=== PATIENT | male | born 1935 | race African-American/Black ===

== ENCOUNTER 2023-11-26 19:36 | Inpatient (IN) | payer OTHER ==
[2023-11-26 22:34] LABS: EPI CELLS 3 /uL (0-25.1); HYALINE CASTS 0 /uL (0-3.1); PH,URINE 5.5 (5.0-8.0); URINE APPEARANCE CLEAR; URINE BACTERIA 2 /uL (0-1359); URINE BILIRUBIN NEGATIVE (NEGATIVE); URINE COLOR YELLOW; URINE GLUCOSE (UA) NEGATIVE (NEGATIVE); URINE KETONE NEGATIVE (NEGATIVE); URINE LEUK ESTERASE TRACE (NEGATIVE); URINE NITRITE NEGATIVE (NEGATIVE); URINE PROTEIN 1+ (NEGATIVE); URINE RBC 59 /uL (0-23.9); URINE WBC 4 /uL (0-25.8)
[2023-11-26] MEDS ORDERED: HALOPERIDOL LACTATE 5 MG/ML ONE (22:38)
[2023-11-26] MEDS: HALOPERIDOL LACTATE 5 MG/ML IM ONE (22:42)
[2023-11-27 01:01] LABS: BASO % 0.6 % (0-2.0); EOS % 1.8 % (0-4.5); HEMATOCRIT 37.2 % (35.4-49); HEMOGLOBIN 12.4 GM/dL (11.7-16.9); LYMPH % 48.3 % (8-40); MCH 31.2 pg (25.7-33.7); MCHC 33.3 g/dl (32.0-35.9); MEAN CELL VOLUME 93.7 fl (80-96); MEAN PLT VOLUME 8.7 fl (7.5-11.1); MONO % 14.8 % (3.8-10.2); NEUT % 34.5 % (42.8-82.8); PLATELET COUNT 117 10^3/uL (134-434); RBC 3.97 M/mm3 (4.00-5.60); RDW 12.5 % (11.9-15.9); WHITE BLOOD COUNT 3.4 K/mm3 (4.0-10.0)
[2023-11-27 01:06] LABS: INR 1.13 (0.83-1.09); PROTHROMBIN TIME (PATIENT) 13.1 SEC (9.7-13.0)
[2023-11-27 01:08] LABS: ACTIVATED PTT 31.5 SECONDS (25.2-36.5)
[2023-11-27 01:19] LABS: POTASSIUM 4.6 mmol/L (3.5-5.1)
[2023-11-27 01:21] LABS: ALBUMIN 3.8 g/dl (3.4-5.0); BLOOD UREA NITROGEN 32.5 mg/dL (7-18); CALCIUM 9.7 mg/dL (8.5-10.1)
[2023-11-27 01:24] LABS: CREATININE 1.2 mg/dL (0.55-1.3)
[2023-11-27 01:26] LABS: BILIRUBIN,TOTAL 0.5 mg/dL (0.2-1); TOT PROT 7.1 g/dl (6.4-8.2)
[2023-11-27] MEDS ORDERED: amLODIPine BESYLATE 5 MG TABLET (FP) ONE (08:31)
[2023-11-27] MEDS: amLODIPine BESYLATE 5 MG TABLET (FP) PO ONE (08:41)
[2023-11-27] MEDS ORDERED: hydrALAZINE HCL 20 MG/ML VIAL ONE (11:02)
[2023-11-27] MEDS: hydrALAZINE HCL 20 MG/ML VIAL IVPUSH ONE (12:00)
[2023-11-27] MEDS: ISOSORBIDE MONONITRATE 60 MG TAB.SR.24H (FP) PO SCH (12:01)
[2023-11-27] MEDS: DULoxetine HCL 20 MG CAPSULE.DR PO SCH (12:01)
[2023-11-27] MEDS: CLOPIDOGREL BISULFATE 75 MG TABLET (FP) PO SCH (12:01)
[2023-11-27] MEDS: RANOLAZINE E.R. 1,000 MG TABLET (FP) PO SCH (12:01)
[2023-11-27] MEDS: FOLIC ACID 1 MG TABLET (FP) PO SCH (12:01)
[2023-11-27] MEDS: PANTOPRAZOLE 40 MG TABLET PO SCH (12:01)
[2023-11-27] MEDS: INSULIN ASPART SLIDING SCALE (NOVOLOG) 1 VIAL SQ SCH (12:41)
[2023-11-27] MEDS: hydrALAZINE HCL 20 MG/ML VIAL IVPUSH PRN (16:38)
[2023-11-27] MEDS: GABAPENTIN 100 MG CAPSULE PO SCH (16:41)
[2023-11-27] MEDS: SODIUM CHLORIDE 1,000 ML IV SCH (16:54)
[2023-11-27 17:55] VITALS: BMI 19.8
[2023-11-27] MEDS: ATORVASTATIN CA 20 MG TABLET (FP) PO SCH (22:07)
[2023-11-28 08:33] LABS: BASO % 0.6 % (0-2.0); HEMATOCRIT 35.3 % (35.4-49); LYMPH % 43.7 % (8-40); MCH 31.3 pg (25.7-33.7); MCHC 33.8 g/dl (32.0-35.9); MEAN CELL VOLUME 92.5 fl (80-96); MEAN PLT VOLUME 8.9 fl (7.5-11.1); MONO % 13.9 % (3.8-10.2); NEUT % 39.8 % (42.8-82.8); PLATELET COUNT 113 10^3/uL (134-434); RBC 3.82 M/mm3 (4.00-5.60); RDW 12.4 % (11.9-15.9); WHITE BLOOD COUNT 3.2 K/mm3 (4.0-10.0)
[2023-11-28 08:50] LABS: POTASSIUM 4.1 mmol/L (3.5-5.1)
[2023-11-28 08:58] LABS: CALCIUM 9.1 mg/dL (8.5-10.1)
[2023-11-28 08:59] LABS: ALBUMIN 3.9 g/dl (3.4-5.0); BLOOD UREA NITROGEN 26.6 mg/dL (7-18); MAGNESIUM 1.9 mg/dL (1.8-2.4)
[2023-11-28 09:00] LABS: BILIRUBIN,TOTAL 0.6 mg/dL (0.2-1); TOT PROT 6.6 g/dl (6.4-8.2)
[2023-11-28 09:02] LABS: CREATININE 1.2 mg/dL (0.55-1.3); PHOSPHOROUS 2.6 mg/dL (2.5-4.9)
[2023-11-28] MEDS ORDERED: RANOLAZINE E.R. 500 MG TABLET (FP) ONE ×2 (09:22→21:01)
[2023-11-28] MEDS: amLODIPine BESYLATE 10 MG TABLET (FP) PO SCH (09:43)
[2023-11-29 07:40] LABS: BASO % 0.9 % (0-2.0); EOS % 1.8 % (0-4.5); HEMATOCRIT 40.7 % (35.4-49); HEMOGLOBIN 13.3 GM/dL (11.7-16.9); LYMPH % 34.3 % (8-40); MCH 30.7 pg (25.7-33.7); MCHC 32.7 g/dl (32.0-35.9); MEAN CELL VOLUME 93.9 fl (80-96); MEAN PLT VOLUME 9.2 fl (7.5-11.1); PLATELET COUNT 129 10^3/uL (134-434); RBC 4.33 M/mm3 (4.00-5.60); RDW 12.4 % (11.9-15.9); WHITE BLOOD COUNT 3.4 K/mm3 (4.0-10.0)
[2023-11-29 08:18] LABS: POTASSIUM 4.7 mmol/L (3.5-5.1)
[2023-11-29 08:20] LABS: CALCIUM 9.3 mg/dL (8.5-10.1)
[2023-11-29 08:21] LABS: ALBUMIN 4.2 g/dl (3.4-5.0); BLOOD UREA NITROGEN 25.3 mg/dL (7-18)
[2023-11-29 08:22] LABS: MAGNESIUM 2.1 mg/dL (1.8-2.4)
[2023-11-29 08:24] LABS: CREATININE 1.2 mg/dL (0.55-1.3); PHOSPHOROUS 2.6 mg/dL (2.5-4.9)
[2023-11-29 08:26] LABS: BILIRUBIN,TOTAL 0.9 mg/dL (0.2-1); TOT PROT 7.2 g/dl (6.4-8.2)
[2023-11-29] MEDS ORDERED: RANOLAZINE E.R. 500 MG TABLET (FP) ONE ×2 (09:00→22:13)
[2023-11-30 08:30] LABS: BASO % 0.9 % (0-2.0); EOS % 2.2 % (0-4.5); HEMATOCRIT 35.7 % (35.4-49); HEMOGLOBIN 12.5 GM/dL (11.7-16.9); LYMPH % 39.7 % (8-40); MEAN CELL VOLUME 91.5 fl (80-96); MEAN PLT VOLUME 9.1 fl (7.5-11.1); NEUT % 42.2 % (42.8-82.8); PLATELET COUNT 113 10^3/uL (134-434); RDW 12.5 % (11.9-15.9); WHITE BLOOD COUNT 3.2 K/mm3 (4.0-10.0)
[2023-11-30 08:36] LABS: POTASSIUM 3.9 mmol/L (3.5-5.1)
[2023-11-30 08:42] LABS: CALCIUM 8.9 mg/dL (8.5-10.1)
[2023-11-30 08:43] LABS: ALBUMIN 3.8 g/dl (3.4-5.0); BLOOD UREA NITROGEN 22.4 mg/dL (7-18); MAGNESIUM 2.1 mg/dL (1.8-2.4)
[2023-11-30 08:46] LABS: BILIRUBIN,TOTAL 0.6 mg/dL (0.2-1); PHOSPHOROUS 2.7 mg/dL (2.5-4.9); TOT PROT 6.4 g/dl (6.4-8.2)
[2023-11-30] MEDS ORDERED: RANOLAZINE E.R. 500 MG TABLET (FP) ONE ×2 (10:29→19:53)
[2023-11-30 18:07] VITALS: RESP 18
[2023-12-01 08:04] LABS: ALBUMIN 3.7 g/dl (3.4-5.0); BLOOD UREA NITROGEN 20.2 mg/dL (7-18); CALCIUM 9.2 mg/dL (8.5-10.1)
[2023-12-01 08:06] LABS: MAGNESIUM 1.8 mg/dL (1.8-2.4)
[2023-12-01 08:08] LABS: BASO % 0.8 % (0-2.0); EOS % 3.5 % (0-4.5); HEMATOCRIT 38.5 % (35.4-49); LYMPH % 44.8 % (8-40); MCH 31.4 pg (25.7-33.7); MCHC 33.7 g/dl (32.0-35.9); MEAN CELL VOLUME 93.3 fl (80-96); MEAN PLT VOLUME 8.7 fl (7.5-11.1); MONO % 15.9 % (3.8-10.2); PLATELET COUNT 118 10^3/uL (134-434); RBC 4.12 M/mm3 (4.00-5.60); RDW 12.6 % (11.9-15.9); WHITE BLOOD COUNT 2.7 K/mm3 (4.0-10.0)
[2023-12-01 08:34] LABS: PHOSPHOROUS 3.2 mg/dL (2.5-4.9)
[2023-12-01 08:35] LABS: BILIRUBIN,TOTAL 0.7 mg/dL (0.2-1); TOT PROT 6.5 g/dl (6.4-8.2)
[2023-12-01] MEDS ORDERED: RANOLAZINE E.R. 500 MG TABLET (FP) ONE (11:08)
[2023-12-01 15:48] VITALS: BP 121/68; PULSE 84; TEMP 98.6
== END 2023-12-01 19:30 | DRG 947 ==
LOC: JER 19:36 → JERBED 11-27 02:26 → J4W 11-27 12:48 → OBSVTOIN 11-28 09:58
PROVIDERS: ADMIT Internal Medicine; ATTEND Internal Medicine
DX: R68.0 Hypothermia, not associated with low environmental temperature (principal); R53.2 Functional quadriplegia; I24.89 Other forms of acute ischemic heart disease; Z68.1 Body mass index [BMI] 19.9 or less, adult; R64 Cachexia; R55 Syncope and collapse; R29.6 Repeated falls; D72.819 Decreased white blood cell count, unspecified; I25.10 Atherosclerotic heart disease of native coronary artery without angina pectoris; I10 Essential (primary) hypertension; F03.90 Unspecified dementia, unspecified severity, without behavioral disturbance, psychotic disturbance, mood disturbance, and anxiety; E11.9 Type 2 diabetes mellitus without complications; I69.391 Dysphagia following cerebral infarction; R13.10 Dysphagia, unspecified; W18.30XA Fall on same level, unspecified, initial encounter; Y93.9 Activity, unspecified; Y92.098 Other place in other non-institutional residence as the place of occurrence of the external cause; Y99.9 Unspecified external cause status
CPT/HCPCS: 0241U-QW; 36415; 70450-TC; 71045-TC-FY; 72125-TC; 80053; 81003; 82533; 82962; 83735; 84100; 84439; 84443; 84484; 85025; 85610; 85730; 86850; 86900; 86901; 87040; 87086; 93005; 93010; 97116-GP; 97162-GP; 99285-25; G0378

== ENCOUNTER 2024-06-20 15:15 | Inpatient (IN) | payer OTHER ==
[2024-06-20] MEDS ORDERED: ONDANSETRON 4 MG/2 ML VIAL ONE (17:20)
[2024-06-20 17:34] LABS: INR 0.96 (0.83-1.09)
[2024-06-20 17:36] LABS: BASO % 0.2 % (0-2.0); EOS % 0.1 % (0-4.5); HEMATOCRIT 40.3 % (35.4-49); HEMOGLOBIN 13.2 GM/dL (11.7-16.9); LYMPH % 9.4 % (8-40); MCH 30.8 pg (25.7-33.7); MCHC 32.8 g/dl (32.0-35.9); MEAN CELL VOLUME 93.8 fl (80-96); MONO % 0.9 % (3.8-10.2); NEUT % 89.4 % (42.8-82.8); PLATELET COUNT 152 10^3/uL (134-434); RDW 12.4 % (11.9-15.9); WHITE BLOOD COUNT 5.2 K/mm3 (4.0-10.0)
[2024-06-20 17:37] LABS: ACTIVATED PTT 18.4 SECONDS (25.2-36.5)
[2024-06-20 17:54] LABS: LACTIC ACID 4.6 mmol/L (0.4-2.0)
[2024-06-20 17:57] LABS: POTASSIUM 5.7 mmol/L (3.5-5.1)
[2024-06-20 17:59] LABS: CALCIUM 9.5 mg/dL (8.5-10.1)
[2024-06-20 18:00] LABS: ALBUMIN 4.1 g/dl (3.4-5.0); BLOOD UREA NITROGEN 62.6 mg/dL (7-18)
[2024-06-20 18:03] LABS: CREATININE 2.3 mg/dL (0.55-1.3)
[2024-06-20 18:05] LABS: BILIRUBIN,TOTAL 1.2 mg/dL (0.2-1); TOT PROT 7.7 g/dl (6.4-8.2)
[2024-06-20] MEDS: SODIUM CHLORIDE 0.9% 500 ML INFUS.BAG IV ONE (19:35)
[2024-06-20] MEDS: SODIUM CHLORIDE 0.9% 1000 ML INFUS.BAG IV STA (19:35)
[2024-06-20] MEDS: ONDANSETRON 4 MG/2 ML VIAL IVPUSH ONE (20:56)
[2024-06-20 22:51] LABS: ALBUMIN 3.8 g/dl (3.4-5.0); BLOOD UREA NITROGEN 59.4 mg/dL (7-18)
[2024-06-20 22:56] LABS: TOT PROT 6.6 g/dl (6.4-8.2)
[2024-06-20 22:59] LABS: LACTIC ACID 3.6 mmol/L (0.4-2.0)
[2024-06-21] MEDS: INSULIN ASPART SLIDING SCALE (NOVOLOG) 1 VIAL SQ SCH (01:30)
[2024-06-21] MEDS ORDERED: INSULIN ASPART SLIDING SCALE (NOVOLOG) 1 VIAL SQ ONE (01:34)
[2024-06-21] MEDS ORDERED: PIPERACILLIN/TAZOB 3.375 GM 3.375 GM in DEXTROSE 5%-WATER - 50 ML IVPB SCH (03:00)
[2024-06-21] MEDS: LACTATED RINGERS SOLUTION 1,000 ML/1,000 ML INFUS.BAG IV SCH (03:05)
[2024-06-21] MEDS: PIPERACILLIN/TAZOB 3.375 GM 3.375 GM in DEXTROSE 5%-WATER - 50 ML IVPB SCH (03:06)
[2024-06-21] MEDS ORDERED: PIPERACILLIN/TAZOB 3.375 GM 3.375 GM/50 ML BAG IVPB ONE (03:06)
[2024-06-21] MEDS: AZITHROMYCIN IVPB 500 MG/250 ML BAG IVPB ONE (03:58)
[2024-06-21] MEDS ORDERED: AZITHROMYCIN IVPB 500 MG/250 ML BAG IVPB ONE (04:09)
[2024-06-21 06:01] LABS: HEMATOCRIT 34.9 % (35.4-49); HEMOGLOBIN 11.4 GM/dL (11.7-16.9); MCH 30.5 pg (25.7-33.7); MCHC 32.5 g/dl (32.0-35.9); MEAN CELL VOLUME 93.6 fl (80-96); MEAN PLT VOLUME 8.4 fl (7.5-11.1); PLATELET COUNT 101 10^3/uL (134-434); RBC 3.73 M/mm3 (4.00-5.60); RDW 12.5 % (11.9-15.9); WHITE BLOOD COUNT 11.4 K/mm3 (4.0-10.0)
[2024-06-21] MEDS ORDERED: HEPARIN NA (PORCINE) 5,000 UNITS/ML 1ML VIAL ONE (06:05)
[2024-06-21 06:20] LABS: POTASSIUM 4.7 mmol/L (3.5-5.1)
[2024-06-21] MEDS: HEPARIN NA (PORCINE) 5,000 UNITS/ML 1ML VIAL SQ SCH (06:21)
[2024-06-21 06:22] LABS: ALBUMIN 3.7 g/dl (3.4-5.0); CALCIUM 9.1 mg/dL (8.5-10.1); MAGNESIUM 1.9 mg/dL (1.8-2.4)
[2024-06-21 06:23] LABS: BLOOD UREA NITROGEN 65.5 mg/dL (7-18)
[2024-06-21 06:25] LABS: CREATININE 2.2 mg/dL (0.55-1.3)
[2024-06-21 06:26] LABS: PHOSPHOROUS 4.1 mg/dL (2.5-4.9)
[2024-06-21 06:27] LABS: TOT PROT 6.6 g/dl (6.4-8.2)
[2024-06-21 06:28] LABS: BILIRUBIN,TOTAL 0.8 mg/dL (0.2-1)
[2024-06-21] MEDS ORDERED: RANOLAZINE E.R. 500 MG TABLET (FP) ONE ×2 (09:41→22:15)
[2024-06-21] MEDS: GABAPENTIN 100 MG CAPSULE PO SCH (09:43)
[2024-06-21] MEDS: FERROUS SO4 325 MG TABLET (FP) PO SCH (09:43)
[2024-06-21] MEDS: DOCUSATE SODIUM 100 MG CAPSULE (FP) PO SCH (09:43)
[2024-06-21] MEDS: PANTOPRAZOLE 40 MG TABLET PO SCH (09:44)
[2024-06-21] MEDS: ATORVASTATIN CA 20 MG TABLET (FP) PO SCH (09:44)
[2024-06-21] MEDS: FOLIC ACID 1 MG TABLET (FP) PO SCH (09:44)
[2024-06-21] MEDS: DULoxetine HCL 20 MG CAPSULE.DR PO SCH (09:44)
[2024-06-21] MEDS: POLYETHYLENE GLYCOL (HEALTHYLAX) 3350 17 GM PACKET PO SCH (09:44)
[2024-06-21] MEDS: RANOLAZINE E.R. 1,000 MG TABLET (FP) PO SCH (09:45)
[2024-06-21] MEDS: PIPERACILLIN/TAZOB 2.25 GM 2.25 GM in DEXTROSE 5%-WATER - 50 ML IVPB SCH (14:52)
[2024-06-22 09:39] LABS: BASO % 0.1 % (0-2.0); EOS % 0.3 % (0-4.5); HEMATOCRIT 29.3 % (35.4-49); HEMOGLOBIN 9.9 GM/dL (11.7-16.9); LYMPH % 4.8 % (8-40); MCH 30.7 pg (25.7-33.7); MCHC 33.7 g/dl (32.0-35.9); MEAN PLT VOLUME 8.7 fl (7.5-11.1); MONO % 6.1 % (3.8-10.2); NEUT % 88.7 % (42.8-82.8); PLATELET COUNT 72 10^3/uL (134-434); RBC 3.22 M/mm3 (4.00-5.60); RDW 12.5 % (11.9-15.9); WHITE BLOOD COUNT 9.3 K/mm3 (4.0-10.0)
[2024-06-22] MEDS ORDERED: RANOLAZINE E.R. 500 MG TABLET (FP) ONE ×2 (09:44→22:16)
[2024-06-22] MEDS ORDERED: AZITHROMYCIN IVPB 250 MG in DEXTROSE 5%-WATER - 250 ML IVPB SCH (10:00)
[2024-06-22 10:04] LABS: POTASSIUM 4.4 mmol/L (3.5-5.1)
[2024-06-22 10:34] LABS: CALCIUM 8.7 mg/dL (8.5-10.1)
[2024-06-22 10:35] LABS: ALBUMIN 3.1 g/dl (3.4-5.0); BLOOD UREA NITROGEN 66.2 mg/dL (7-18)
[2024-06-22 10:38] LABS: CREATININE 2.1 mg/dL (0.55-1.3)
[2024-06-22 10:39] LABS: BILIRUBIN,TOTAL 1.2 mg/dL (0.2-1); TOT PROT 5.8 g/dl (6.4-8.2)
[2024-06-22 10:41] LABS: ANISOCYTOSIS 0; MACROCYTOSIS 0
[2024-06-23 08:13] LABS: POTASSIUM 4.3 mmol/L (3.5-5.1)
[2024-06-23 08:22] LABS: ALBUMIN 3.1 g/dl (3.4-5.0); BLOOD UREA NITROGEN 49.7 mg/dL (7-18)
[2024-06-23 08:25] LABS: CREATININE 1.8 mg/dL (0.55-1.3); HEMATOCRIT 29.9 % (35.4-49); MCH 30.5 pg (25.7-33.7); MCHC 33.3 g/dl (32.0-35.9); MEAN CELL VOLUME 91.6 fl (80-96); MEAN PLT VOLUME 9.8 fl (7.5-11.1); PLATELET COUNT 78 10^3/uL (134-434); RBC 3.27 M/mm3 (4.00-5.60); RDW 12.6 % (11.9-15.9); WHITE BLOOD COUNT 9.1 K/mm3 (4.0-10.0)
[2024-06-23 08:26] LABS: BILIRUBIN,TOTAL 0.8 mg/dL (0.2-1); TOT PROT 6.2 g/dl (6.4-8.2)
[2024-06-23] MEDS ORDERED: RANOLAZINE E.R. 500 MG TABLET (FP) ONE ×2 (09:25→22:10)
[2024-06-23] MEDS: amLODIPine BESYLATE 10 MG TABLET (FP) PO SCH (09:37)
[2024-06-23 09:44] LABS: ANISOCYTOSIS 0; MACROCYTOSIS 0
[2024-06-23 23:15] LABS: FIBROSIS SCORE. 0.68 (0.00-0.21); HCV ALPHA 2 MACRO CHART 217 mg/dL (110-276); NECRO.INFLAM ACT.SCORE 0.97 (0.00-0.17); NECROINFLAM. ACTIVITY GRADE A3-Severe activity (.)
[2024-06-24 08:11] LABS: POTASSIUM 3.4 mmol/L (3.5-5.1)
[2024-06-24 08:17] LABS: ALBUMIN 2.8 g/dl (3.4-5.0)
[2024-06-24 08:20] LABS: BILIRUBIN,DIRECT 0.3 mg/dL (0.0-0.2)
[2024-06-24 08:21] LABS: CALCIUM 8.8 mg/dL (8.5-10.1)
[2024-06-24 08:22] LABS: BILIRUBIN,TOTAL 0.7 mg/dL (0.2-1); BLOOD UREA NITROGEN 28.4 mg/dL (7-18); TOT PROT 5.6 g/dl (6.4-8.2)
[2024-06-24 08:25] LABS: CREATININE 1.2 mg/dL (0.55-1.3)
[2024-06-24 08:56] LABS: BASO % 0.2 % (0-2.0); EOS % 1.7 % (0-4.5); HEMATOCRIT 29.4 % (35.4-49); HEMOGLOBIN 9.9 GM/dL (11.7-16.9); LYMPH % 9.8 % (8-40); MCH 30.3 pg (25.7-33.7); MCHC 33.6 g/dl (32.0-35.9); MEAN CELL VOLUME 90.3 fl (80-96); MEAN PLT VOLUME 8.8 fl (7.5-11.1); MONO % 9.2 % (3.8-10.2); NEUT % 79.1 % (42.8-82.8); PLATELET COUNT 69 10^3/uL (134-434); RBC 3.26 M/mm3 (4.00-5.60); RDW 12.4 % (11.9-15.9); WHITE BLOOD COUNT 5.9 K/mm3 (4.0-10.0)
[2024-06-24] MEDS ORDERED: RANOLAZINE E.R. 500 MG TABLET (FP) ONE ×2 (09:45→21:29)
[2024-06-24] MEDS ORDERED: PIPERACILLIN/TAZOBACTAM 2.25 GM VIAL IVPB ONE (09:46)
[2024-06-24] MEDS: POTASSIUM CHLORIDE ORAL LIQUID 20 MEQ/15 ML PO ONE (19:44)
[2024-06-24] MEDS: PHENYLEPHRINE HCL/COCOA BUTTER 1 EACH SUPP.RECT RC SCH (21:32)
[2024-06-25 08:12] LABS: HEMATOCRIT 28.4 % (35.4-49); HEMOGLOBIN 9.6 GM/dL (11.7-16.9); MEAN CELL VOLUME 91.3 fl (80-96); MEAN PLT VOLUME 8.8 fl (7.5-11.1); PLATELET COUNT 79 10^3/uL (134-434); RBC 3.11 M/mm3 (4.00-5.60); RDW 12.3 % (11.9-15.9); WHITE BLOOD COUNT 3.9 K/mm3 (4.0-10.0)
[2024-06-25 08:22] LABS: POTASSIUM 3.7 mmol/L (3.5-5.1)
[2024-06-25 08:46] LABS: CALCIUM 8.8 mg/dL (8.5-10.1)
[2024-06-25 08:47] LABS: ALBUMIN 2.9 g/dl (3.4-5.0); BLOOD UREA NITROGEN 22.1 mg/dL (7-18)
[2024-06-25 08:50] LABS: CREATININE 1.1 mg/dL (0.55-1.3)
[2024-06-25 08:51] LABS: BILIRUBIN,TOTAL 0.7 mg/dL (0.2-1); TOT PROT 5.8 g/dl (6.4-8.2)
[2024-06-25] MEDS ORDERED: RANOLAZINE E.R. 500 MG TABLET (FP) ONE ×2 (09:03→21:07)
[2024-06-26 08:09] LABS: BASO % 0.8 % (0-2.0); EOS % 1.6 % (0-4.5); HEMATOCRIT 30.9 % (35.4-49); HEMOGLOBIN 10.5 GM/dL (11.7-16.9); LYMPH % 31.7 % (8-40); MCH 30.9 pg (25.7-33.7); MCHC 33.8 g/dl (32.0-35.9); MEAN CELL VOLUME 91.4 fl (80-96); MEAN PLT VOLUME 8.7 fl (7.5-11.1); MONO % 17.4 % (3.8-10.2); NEUT % 48.5 % (42.8-82.8); PLATELET COUNT 111 10^3/uL (134-434); RBC 3.38 M/mm3 (4.00-5.60); RDW 12.3 % (11.9-15.9); WHITE BLOOD COUNT 4.7 K/mm3 (4.0-10.0)
[2024-06-26 08:27] LABS: POTASSIUM 3.4 mmol/L (3.5-5.1)
[2024-06-26 08:31] LABS: CALCIUM 8.9 mg/dL (8.5-10.1)
[2024-06-26 08:32] LABS: ALBUMIN 3.5 g/dl (3.4-5.0); BLOOD UREA NITROGEN 15.5 mg/dL (7-18)
[2024-06-26 08:35] LABS: CREATININE 1.3 mg/dL (0.55-1.3)
[2024-06-26 08:37] LABS: BILIRUBIN,TOTAL 0.8 mg/dL (0.2-1); TOT PROT 6.8 g/dl (6.4-8.2)
[2024-06-26] MEDS ORDERED: RANOLAZINE E.R. 500 MG TABLET (FP) ONE ×2 (09:26→21:42)
[2024-06-27 08:37] LABS: HEMATOCRIT 28.8 % (35.4-49); HEMOGLOBIN 9.7 GM/dL (11.7-16.9); MCH 30.4 pg (25.7-33.7); MCHC 33.7 g/dl (32.0-35.9); MEAN CELL VOLUME 90.3 fl (80-96); MEAN PLT VOLUME 8.7 fl (7.5-11.1); PLATELET COUNT 110 10^3/uL (134-434); RBC 3.19 M/mm3 (4.00-5.60); RDW 12.1 % (11.9-15.9); WHITE BLOOD COUNT 3.9 K/mm3 (4.0-10.0)
[2024-06-27 08:55] LABS: POTASSIUM 3.2 mmol/L (3.5-5.1)
[2024-06-27 09:05] LABS: ALBUMIN 3.1 g/dl (3.4-5.0); BLOOD UREA NITROGEN 12.5 mg/dL (7-18)
[2024-06-27 09:06] LABS: BILIRUBIN,TOTAL 0.8 mg/dL (0.2-1)
[2024-06-27 09:08] LABS: CALCIUM 8.6 mg/dL (8.5-10.1); PHOSPHOROUS 1.9 mg/dL (2.5-4.9)
[2024-06-27 09:09] LABS: MAGNESIUM 1.7 mg/dL (1.8-2.4)
[2024-06-27] MEDS ORDERED: RANOLAZINE E.R. 500 MG TABLET (FP) ONE ×2 (09:23→21:00)
[2024-06-27 09:25] LABS: ANISOCYTOSIS 0; MACROCYTOSIS 0
[2024-06-27] MEDS: MAGNESIUM SULF 50% (8.12 MEQ/2 ML-1 GM VIAL) IVPB ONE (17:39)
[2024-06-27] MEDS: POTASSIUM CHLORIDE ORAL LIQUID 20 MEQ/15 ML PO ONE (17:39)
[2024-06-28 10:50] LABS: HEMATOCRIT 24.8 % (35.4-49); HEMOGLOBIN 8.4 GM/dL (11.7-16.9); MCH 30.8 pg (25.7-33.7); MCHC 33.8 g/dl (32.0-35.9); MEAN CELL VOLUME 90.9 fl (80-96); MEAN PLT VOLUME 7.6 fl (7.5-11.1); PLATELET COUNT 135 10^3/uL (134-434); RBC 2.73 M/mm3 (4.00-5.60); RDW 12.3 % (11.9-15.9); WHITE BLOOD COUNT 5.1 K/mm3 (4.0-10.0)
[2024-06-28] MEDS ORDERED: RANOLAZINE E.R. 500 MG TABLET (FP) ONE ×2 (11:03→21:33)
[2024-06-28 11:06] LABS: POTASSIUM 3.5 mmol/L (3.5-5.1)
[2024-06-28 11:08] LABS: CALCIUM 8.2 mg/dL (8.5-10.1)
[2024-06-28 11:10] LABS: ALBUMIN 2.9 g/dl (3.4-5.0); BLOOD UREA NITROGEN 14.4 mg/dL (7-18)
[2024-06-28 11:12] LABS: CREATININE 1.2 mg/dL (0.55-1.3)
[2024-06-28 11:13] LABS: BILIRUBIN,TOTAL 0.8 mg/dL (0.2-1)
[2024-06-28 11:15] LABS: TOT PROT 5.7 g/dl (6.4-8.2)
[2024-06-29 07:58] LABS: POTASSIUM 3.3 mmol/L (3.5-5.1)
[2024-06-29 08:03] LABS: CALCIUM 8.6 mg/dL (8.5-10.1)
[2024-06-29 08:06] LABS: CREATININE 1.2 mg/dL (0.55-1.3)
[2024-06-29 08:08] LABS: BILIRUBIN,TOTAL 1.1 mg/dL (0.2-1); TOT PROT 5.7 g/dl (6.4-8.2)
[2024-06-29 08:23] LABS: BASO % 0.7 % (0-2.0); EOS % 1.3 % (0-4.5); HEMATOCRIT 24.1 % (35.4-49); HEMOGLOBIN 8.2 GM/dL (11.7-16.9); LYMPH % 21.3 % (8-40); MCH 30.9 pg (25.7-33.7); MCHC 34.1 g/dl (32.0-35.9); MEAN CELL VOLUME 90.5 fl (80-96); MEAN PLT VOLUME 8.1 fl (7.5-11.1); MONO % 12.2 % (3.8-10.2); NEUT % 64.5 % (42.8-82.8); PLATELET COUNT 155 10^3/uL (134-434); RBC 2.66 M/mm3 (4.00-5.60); RDW 12.3 % (11.9-15.9); WHITE BLOOD COUNT 5.2 K/mm3 (4.0-10.0)
[2024-06-29] MEDS ORDERED: RANOLAZINE E.R. 500 MG TABLET (FP) ONE ×2 (10:18→21:18)
[2024-06-29] MEDS: POTASSIUM CHLORIDE ORAL LIQUID 20 MEQ/15 ML PO ONE (12:18)
[2024-06-30] MEDS ORDERED: RANOLAZINE E.R. 500 MG TABLET (FP) ONE ×2 (09:30→22:44)
[2024-06-30] MEDS: LACTATED RINGERS SOLUTION 1,000 ML/1,000 ML INFUS.BAG IV SCH (12:24)
[2024-06-30 12:40] LABS: HEMOGLOBIN 8.2 GM/dL (11.7-16.9); MCH 31.4 pg (25.7-33.7); MCHC 34.1 g/dl (32.0-35.9); PLATELET COUNT 170 10^3/uL (134-434); RBC 2.61 M/mm3 (4.00-5.60); RDW 12.4 % (11.9-15.9); WHITE BLOOD COUNT 5.5 K/mm3 (4.0-10.0)
[2024-06-30 13:03] LABS: POTASSIUM 4.2 mmol/L (3.5-5.1)
[2024-06-30 13:05] LABS: CALCIUM 8.4 mg/dL (8.5-10.1)
[2024-06-30 13:06] LABS: BLOOD UREA NITROGEN 18.2 mg/dL (7-18)
[2024-06-30 13:09] LABS: CREATININE 1.2 mg/dL (0.55-1.3)
[2024-06-30 13:11] LABS: BILIRUBIN,TOTAL 0.7 mg/dL (0.2-1); TOT PROT 5.9 g/dl (6.4-8.2)
[2024-07-01 09:37] LABS: HEMATOCRIT 29.2 % (35.4-49); HEMOGLOBIN 10.2 GM/dL (11.7-16.9); MCH 31.2 pg (25.7-33.7); MCHC 34.8 g/dl (32.0-35.9); MEAN CELL VOLUME 89.7 fl (80-96); MEAN PLT VOLUME 8.1 fl (7.5-11.1); PLATELET COUNT 193 10^3/uL (134-434); RBC 3.26 M/mm3 (4.00-5.60); RDW 12.9 % (11.9-15.9); WHITE BLOOD COUNT 5.8 K/mm3 (4.0-10.0)
[2024-07-01 09:41] LABS: INR 1.05 (0.83-1.09); PROTHROMBIN TIME (PATIENT) 11.8 SEC (9.7-13.0)
[2024-07-01 09:50] LABS: POTASSIUM 4.1 mmol/L (3.5-5.1)
[2024-07-01 09:55] LABS: BLOOD UREA NITROGEN 14.8 mg/dL (7-18); CALCIUM 8.6 mg/dL (8.5-10.1)
[2024-07-01 09:58] LABS: PHOSPHOROUS 1.6 mg/dL (2.5-4.9)
[2024-07-01] MEDS: NAPH,MB-DB/K PH,MBDB POWDER PACKET PO ONE (17:53)
[2024-07-01] MEDS ORDERED: RANOLAZINE E.R. 500 MG TABLET (FP) ONE (21:28)
[2024-07-02] VITALS: BMI 20.9
[2024-07-02 06:27] VITALS: RESP 18
[2024-07-02 07:52] LABS: BASO % 0.7 % (0-2.0); EOS % 1.5 % (0-4.5); HEMATOCRIT 31.7 % (35.4-49); HEMOGLOBIN 10.8 GM/dL (11.7-16.9); LYMPH % 21.6 % (8-40); MCHC 34.2 g/dl (32.0-35.9); MEAN CELL VOLUME 90.8 fl (80-96); MEAN PLT VOLUME 7.8 fl (7.5-11.1); MONO % 10.3 % (3.8-10.2); NEUT % 65.9 % (42.8-82.8); PLATELET COUNT 242 10^3/uL (134-434); RBC 3.49 M/mm3 (4.00-5.60); RDW 13.1 % (11.9-15.9)
[2024-07-02 08:26] LABS: ALBUMIN 3.4 g/dl (3.4-5.0); BLOOD UREA NITROGEN 11.1 mg/dL (7-18); CALCIUM 9.1 mg/dL (8.5-10.1); MAGNESIUM 1.9 mg/dL (1.8-2.4)
[2024-07-02 08:29] LABS: CREATININE 0.8 mg/dL (0.55-1.3)
[2024-07-02 08:30] LABS: PHOSPHOROUS 1.5 mg/dL (2.5-4.9)
[2024-07-02 08:31] LABS: BILIRUBIN,TOTAL 1.3 mg/dL (0.2-1); TOT PROT 6.6 g/dl (6.4-8.2)
[2024-07-02 15:55] VITALS: TEMP 97.7
[2024-07-02] MEDS: NAPH,MB-DB/K PH,MBDB POWDER PACKET PO ONE (18:06)
[2024-07-02 21:02] VITALS: BP 168/83; PULSE 71
== END 2024-07-02 21:06 | DRG 438 ==
LOC: JER 15:15 → JERBED 06-21 00:55 → J4W 06-21 07:15
PROVIDERS: ADMIT Internal Medicine; ATTEND Internal Medicine
DX: K85.10 Biliary acute pancreatitis without necrosis or infection (principal); J18.9 Pneumonia, unspecified organism; E87.20 Acidosis, unspecified; N17.9 Acute kidney failure, unspecified; I24.89 Other forms of acute ischemic heart disease; F03.911 Unspecified dementia, unspecified severity, with agitation; K81.0 Acute cholecystitis; I25.10 Atherosclerotic heart disease of native coronary artery without angina pectoris; I25.2 Old myocardial infarction; I69.391 Dysphagia following cerebral infarction; R13.10 Dysphagia, unspecified; E11.40 Type 2 diabetes mellitus with diabetic neuropathy, unspecified; E11.65 Type 2 diabetes mellitus with hyperglycemia; E86.0 Dehydration; R74.01 Elevation of levels of liver transaminase levels; K52.9 Noninfective gastroenteritis and colitis, unspecified; I12.9 Hypertensive chronic kidney disease with stage 1 through stage 4 chronic kidney disease, or unspecified chronic kidney disease; N18.9 Chronic kidney disease, unspecified; E11.22 Type 2 diabetes mellitus with diabetic chronic kidney disease
CPT/HCPCS: 36415; 36430; 71045-TC-FY; 74176-TC; 76705-TC; 76775-TC; 80048; 80053; 80061; 80076; 82172; 82550; 82553; 82962; 82977; 83010; 83036; 83605; 83690; 83735; 83883; 84100; 84460; 84478; 84484; 85025; 85027; 85610; 85730; 86705; 86708; 86803; 86850; 86900; 86901; 86922; 87340; 87517; 93005; 93010; 93306-TC; 99285-25; J1644; P9038; P9058

== ENCOUNTER 2025-01-28 15:40 | Inpatient (IN) | payer OTHER ==
[2025-01-28 16:14] LABS: HEMOGLOBIN 12.8 g/dL (13.7-17.5); MEAN CELL VOLUME 93.2 fl (79.0-92.2); PLATELET COUNT 188 x10^3/uL (163-337); RDW 11.9 % (12.6-16.6)
[2025-01-28 16:24] LABS: INR 1.17 (0.83-1.09); PROTHROMBIN TIME (PATIENT) 12.7 SEC (9.7-13.0)
[2025-01-28 16:26] LABS: ACTIVATED PTT 31.6 SECONDS (25.2-36.5)
[2025-01-28 16:39] LABS: POTASSIUM 4.8 mmol/L (3.5-5.1)
[2025-01-28 16:42] LABS: CALCIUM 9.6 mg/dL (8.5-10.1)
[2025-01-28 16:43] LABS: ALBUMIN 4.4 g/dl (3.4-5.0); BLOOD UREA NITROGEN 46.7 mg/dL (7-18); MAGNESIUM 2.1 mg/dL (1.8-2.4)
[2025-01-28 16:46] LABS: CREATININE 2.1 mg/dL (0.55-1.3); PHOSPHOROUS 4.4 mg/dL (2.5-4.9)
[2025-01-28 16:47] LABS: BILIRUBIN,TOTAL 0.7 mg/dL (0.2-1); TOT PROT 7.6 g/dl (6.4-8.2)
[2025-01-28] MEDS: SODIUM CHLORIDE 0.9% 500 ML INFUS.BAG IV ONE (18:11)
[2025-01-28] MEDS ORDERED: LACTATED RINGERS SOLUTION 1,000 ML/1,000 ML INFUS.BAG IV SCH (18:15)
[2025-01-28] MEDS: MIRTAZAPINE 15 MG TABLET (FP) PO SCH (21:24)
[2025-01-28] MEDS: PANTOPRAZOLE SODIUM 40 MG VIAL IVPUSH SCH (21:24)
[2025-01-28] MEDS: RANOLAZINE E.R. 500 MG TABLET (FP) PO SCH (21:24)
[2025-01-28] MEDS: ATORVASTATIN CA 20 MG TABLET (FP) PO SCH (21:24)
[2025-01-28] MEDS: INSULIN ASPART SLIDING SCALE (NOVOLOG) 1 VIAL SQ SCH (21:30)
[2025-01-28] MEDS: LACTATED RINGERS SOLUTION 1,000 ML/1,000 ML INFUS.BAG IV SCH (21:31)
[2025-01-28] MEDS: GABAPENTIN 250 MG/5 ML ORAL SOLUTION, 470 ML BOTTLE PO SCH (22:08)
[2025-01-29 07:04] LABS: CALCIUM 9.5 mg/dL (8.5-10.1); MAGNESIUM 1.9 mg/dL (1.8-2.4)
[2025-01-29 07:07] LABS: CREATININE 1.6 mg/dL (0.55-1.3); PHOSPHOROUS 2.7 mg/dL (2.5-4.9)
[2025-01-29 08:05] LABS: HEMATOCRIT 36.7 % (40.1-51.0); HEMOGLOBIN 11.9 g/dL (13.7-17.5); MCHC 32.4 g/dl (32.3-36.5); MEAN CELL VOLUME 93.1 fl (79.0-92.2); MEAN PLT VOLUME 10.2 fl (9.4-12.4); PLATELET COUNT 179 x10^3/uL (163-337); RDW 11.6 % (12.6-16.6)
[2025-01-29] MEDS: ZINC OXIDE 20% TOPICAL OINTMENT 30 GM TUBE TP SCH (09:51)
[2025-01-29] MEDS ORDERED: LACTATED RINGERS SOLUTION 1,000 ML/1,000 ML INFUS.BAG IV SCH (12:36)
[2025-01-29] MEDS: GABAPENTIN 250 MG/5 ML ORAL SOLUTION, 470 ML BOTTLE PO SCH (14:57)
[2025-01-29] MEDS ORDERED: POTASSIUM CHLORIDE 10 MEQ in AMINO ACIDS 4.25%/D5W 1,000 ML IV SCH (16:00)
[2025-01-29] MEDS ORDERED: SILVER SULFADIAZINE 1% TOP CREAM 50 GM JAR TP SCH (16:30)
[2025-01-29] MEDS: AMINO ACIDS 4.25%/D5W 1,000 ML IV SCH (16:35)
[2025-01-29] MEDS: POTASSIUM CHLORIDE 10 MEQ in AMINO ACIDS 4.25%/D5W 1,000 ML IV SCH (17:27)
[2025-01-29] MEDS: INSULIN ASPART SLIDING SCALE (NOVOLOG) 1 VIAL SQ SCH (17:33)
[2025-01-29] MEDS: PANTOPRAZOLE SODIUM 40 MG VIAL IVPUSH SCH (21:01)
[2025-01-29] MEDS: ATORVASTATIN CA 20 MG TABLET (FP) PO SCH (21:10)
[2025-01-29] MEDS: MIRTAZAPINE 15 MG TABLET (FP) PO SCH (21:11)
[2025-01-29] MEDS ORDERED: RANOLAZINE E.R. 500 MG TABLET (FP) PO SCH (22:00)
[2025-01-30 08:56] LABS: HEMATOCRIT 26.1 % (40.1-51.0); HEMOGLOBIN 8.4 g/dL (13.7-17.5); MCHC 32.2 g/dl (32.3-36.5); MEAN CELL VOLUME 92.6 fl (79.0-92.2); MEAN PLT VOLUME 10.4 fl (9.4-12.4); PLATELET COUNT 116 x10^3/uL (163-337); RDW 11.8 % (12.6-16.6)
[2025-01-30 09:14] LABS: POTASSIUM 4.2 mmol/L (3.5-5.1)
[2025-01-30 09:19] LABS: ALBUMIN 3.1 g/dl (3.4-5.0); BLOOD UREA NITROGEN 56.2 mg/dL (7-18); CALCIUM 8.4 mg/dL (8.5-10.1)
[2025-01-30 09:21] LABS: CREATININE 1.4 mg/dL (0.55-1.3)
[2025-01-30 09:32] LABS: BILIRUBIN,TOTAL 0.4 mg/dL (0.2-1); TOT PROT 5.2 g/dl (6.4-8.2)
[2025-01-30] MEDS: CLOPIDOGREL BISULFATE 75 MG TABLET (FP) PO SCH (09:51)
[2025-01-30] MEDS: ZINC OXIDE 20% TOPICAL OINTMENT 30 GM TUBE TP SCH (11:44)
[2025-01-30 11:46] LABS: ABSOLUTE IMMATURE GRANULOCYTES 0.05 x10^3/uL (0.0-0.031); BASOPHILS # 0.03 x10^3/uL (0.01-0.08); EOSINOPHIL % 0.8 % (0.8-7.0); EOSINOPHILS # 0.04 x10^3/uL (0.04-0.54); HEMATOCRIT 25.2 % (40.1-51.0); MCHC 31.7 g/dl (32.3-36.5); MEAN PLT VOLUME 10.5 fl (9.4-12.4); MONOCYTE # 0.59 x10^3/uL (0.30-0.82); MONOCYTE % 12.3 % (5.3-12.2); PLATELET COUNT 121 x10^3/uL (163-337); RDW 11.8 % (12.6-16.6)
[2025-01-30] MEDS: FERROUS SO4 325 MG TABLET (FP) PO SCH (13:32)
[2025-01-30] MEDS: DULoxetine HCL 20 MG CAPSULE.DR PO SCH (13:33)
[2025-01-30] MEDS: FOLIC ACID 1 MG TABLET (FP) PO SCH (13:47)
[2025-01-30 16:10] LABS: Reticulocyte % 0.86 % (0.51-1.81)
[2025-01-31 02:01] LABS: HEMATOCRIT 27.4 % (40.1-51.0); HEMOGLOBIN 8.9 g/dL (13.7-17.5); MCHC 32.5 g/dl (32.3-36.5); MEAN CELL VOLUME 92.9 fl (79.0-92.2); MEAN PLT VOLUME 10.5 fl (9.4-12.4); PLATELET COUNT 116 x10^3/uL (163-337); RDW 11.8 % (12.6-16.6)
[2025-01-31 08:58] LABS: ABSOLUTE IMMATURE GRANULOCYTES 0.01 x10^3/uL (0.0-0.031); BASOPHILS # 0.02 x10^3/uL (0.01-0.08); EOSINOPHIL % 2.1 % (0.8-7.0); EOSINOPHILS # 0.08 x10^3/uL (0.04-0.54); HEMOGLOBIN 8.6 g/dL (13.7-17.5); MCHC 31.9 g/dl (32.3-36.5); MEAN CELL VOLUME 93.4 fl (79.0-92.2); MEAN PLT VOLUME 10.6 fl (9.4-12.4); MONOCYTE # 0.41 x10^3/uL (0.30-0.82); PLATELET COUNT 119 x10^3/uL (163-337); RDW 11.8 % (12.6-16.6)
[2025-01-31 09:12] LABS: POTASSIUM 4.3 mmol/L (3.5-5.1)
[2025-01-31 09:16] LABS: BLOOD UREA NITROGEN 50.2 mg/dL (7-18); CALCIUM 9.1 mg/dL (8.5-10.1); MAGNESIUM 1.7 mg/dL (1.8-2.4)
[2025-01-31 09:18] LABS: ALBUMIN 3.4 g/dl (3.4-5.0)
[2025-01-31 09:21] LABS: CREATININE 1.2 mg/dL (0.55-1.3); PHOSPHOROUS 2.1 mg/dL (2.5-4.9)
[2025-01-31 09:22] LABS: BILIRUBIN,TOTAL 0.5 mg/dL (0.2-1); TOT PROT 5.8 g/dl (6.4-8.2)
[2025-01-31] MEDS: PANTOPRAZOLE SODIUM 40 MG VIAL IVPUSH SCH (10:35)
[2025-01-31 13:52] VITALS: RESP 18
[2025-01-31] MEDS: MAGNESIUM 2GM/50ML STERILE WATER IVPB IVPB ONE (14:52)
[2025-01-31] MEDS: SODIUM PHOSPHATE - 15 MM in SODIUM CHLORIDE 250 ML IVPB ONE (17:41)
[2025-01-31 21:54] VITALS: PULSE 60
[2025-02-01 11:10] VITALS: BP 117/65; TEMP 97.9
== END 2025-02-01 12:00 | DRG 884 ==
LOC: JER 15:40 → JERBED 17:10 → J4W 19:45 → OBSVTOIN 01-29 11:13 → J5S 01-29 12:31
PROVIDERS: ADMIT Student in an Organized Health Care Education/Training Program; ATTEND Internal Medicine
DX: F03.90 Unspecified dementia, unspecified severity, without behavioral disturbance, psychotic disturbance, mood disturbance, and anxiety (principal); E43 Unspecified severe protein-calorie malnutrition; K92.0 Hematemesis; N17.9 Acute kidney failure, unspecified; R64 Cachexia; I10 Essential (primary) hypertension; E11.40 Type 2 diabetes mellitus with diabetic neuropathy, unspecified; I25.10 Atherosclerotic heart disease of native coronary artery without angina pectoris; E78.5 Hyperlipidemia, unspecified; Z68.20 Body mass index [BMI] 20.0-20.9, adult; E86.0 Dehydration; R62.7 Adult failure to thrive; Z86.73 Personal history of transient ischemic attack (TIA), and cerebral infarction without residual deficits; D53.9 Nutritional anemia, unspecified
CPT/HCPCS: 36415; 71045-TC-FY; 74176-TC; 80048; 80053; 82272; 82607; 82728; 82746; 82962; 83036; 83540; 83550; 83735; 84100; 84484; 85025; 85027; 85610; 85730; 86850; 86900; 86901; 93005; 93010; 93306-TC; 99285-25; G0378

== ENCOUNTER 2025-03-31 20:35 | Inpatient (IN) | payer OTHER ==
[2025-03-31] MEDS ORDERED: LACTATED RINGERS SOLUTION 1,000 ML/1,000 ML INFUS.BAG IV SCH (21:45)
[2025-03-31 22:33] LABS: MONOCYTE % 9.4 % (5.3-12.2); RDW 12.9 % (12.6-16.6)
[2025-03-31 22:35] LABS: ABSOLUTE IMMATURE GRANULOCYTES 0.02 x10^3/uL (0.0-0.031); BASOPHILS # 0.04 x10^3/uL (0.01-0.08); EOSINOPHIL % 1.3 % (0.8-7.0); EOSINOPHILS # 0.09 x10^3/uL (0.04-0.54); HEMATOCRIT 35.5 % (40.1-51.0); HEMOGLOBIN 11.2 g/dL (13.7-17.5); MCHC 31.5 g/dl (32.3-36.5); MEAN CELL VOLUME 94.4 fl (79.0-92.2); MEAN PLT VOLUME 10.7 fl (9.4-12.4); MONOCYTE # 0.65 x10^3/uL (0.30-0.82); PLATELET COUNT 140 x10^3/uL (163-337)
[2025-03-31 22:58] LABS: CHLORIDE 107 mmol/L (98-107); POTASSIUM 4.7 mmol/L (3.5-5.1); SODIUM 144 mmol/L (136-145)
[2025-03-31 23:01] LABS: ALBUMIN 4.4 g/dl (3.4-5.0); ANION GAP 11 mmol/L (4-13); BLOOD UREA NITROGEN 98.7 mg/dL (7-18); CO2 26 mmol/L (21-32); GLUCOSE,RANDOM 148 mg/dL (74-106); MAGNESIUM 2.3 mg/dL (1.8-2.4)
[2025-03-31 23:04] LABS: CREATININE 3.3 mg/dL (0.55-1.3); SGOT/AST 35 U/L (15-37); SGPT/ALT 31 U/L (13-61)
[2025-03-31 23:05] LABS: BILIRUBIN,TOTAL 0.5 mg/dL (0.2-1); TOT PROT 7.4 g/dl (6.4-8.2)
[2025-03-31 23:06] LABS: ALK PHOS 69 U/L (45-117)
[2025-03-31] MEDS: SODIUM CHLORIDE 0.9% 500 ML INFUS.BAG IV ONE (23:20)
[2025-04-01] MEDS: DEXTROSE 5%-0.45% SALINE 1,000 ML IV SCH (01:40)
[2025-04-01] MEDS: HEPARIN NA (PORCINE) 5,000 UNITS/ML 1ML VIAL SQ SCH ×2 (06:06→21:26)
[2025-04-01] MEDS: GABAPENTIN 100 MG CAPSULE PO SCH ×2 (06:06→21:26)
[2025-04-01] MEDS: INSULIN ASPART SLIDING SCALE (NOVOLOG) 1 VIAL SQ SCH (06:49)
[2025-04-01] MEDS ORDERED: NOREPINEPHRINE 0.9 % NACL 8 MG/250 ML BAG IVPB SCH (08:00)
[2025-04-01] MEDS: NOREPINEPHRINE BITARTRATE 4,000 MCG in DEXTROSE 5%-WATER - 496 ML IV SCH (08:00)
[2025-04-01 09:31] LABS: ARTERIAL BLD GAS O2 SATURATION 99.9 % (95-98); ARTERIAL BLOOD GAS BASE EXCESS -12.9 mmol/L (-2-2); ARTERIAL BLOOD GAS PO2 470.6 mmHg (80-100); ARTERIAL BLOOD GAS pH 7.328 (7.350-7.450)
[2025-04-01 09:32] LABS: ALLENS TEST POSITIVE; VENT MODE AC; VENT RATE 16
[2025-04-01 09:33] LABS: HEMATOCRIT 22.6 % (40.1-51.0); HEMOGLOBIN 6.9 g/dL (13.7-17.5); MCHC 30.5 g/dl (32.3-36.5); MEAN CELL VOLUME 100.4 fl (79.0-92.2); MEAN PLT VOLUME 10.4 fl (9.4-12.4); PLATELET COUNT 65 x10^3/uL (163-337); RDW 12.8 % (12.6-16.6)
[2025-04-01 09:38] LABS: INR 1.61 (0.83-1.09); PROTHROMBIN TIME (PATIENT) 17.5 SEC (9.7-13.0)
[2025-04-01 09:41] LABS: ACTIVATED PTT 27.5 SECONDS (25.2-36.5)
[2025-04-01 09:57] LABS: CHLORIDE 128 mmol/L (98-107); SODIUM 152 mmol/L (136-145)
[2025-04-01 09:58] LABS: POTASSIUM 2.6 mmol/L (3.5-5.1)
[2025-04-01 10:11] LABS: CREATININE 1.8 mg/dL (0.55-1.3); GLUCOSE,RANDOM 125 mg/dL (74-106)
[2025-04-01 10:12] LABS: BILIRUBIN,TOTAL 0.2 mg/dL (0.2-1)
[2025-04-01 10:13] LABS: ALK PHOS 54 U/L (45-117); ANION GAP 13 mmol/L (4-13); CO2 11 mmol/L (21-32); SGPT/ALT 17 U/L (13-61)
[2025-04-01 10:14] LABS: SGOT/AST 22 U/L (15-37)
[2025-04-01 10:15] LABS: HEMATOCRIT 29.9 % (40.1-51.0); HEMOGLOBIN 9.3 g/dL (13.7-17.5); MCHC 31.1 g/dl (32.3-36.5); MEAN CELL VOLUME 97.1 fl (79.0-92.2); MEAN PLT VOLUME 10.5 fl (9.4-12.4); PLATELET COUNT 92 x10^3/uL (163-337); RDW 12.8 % (12.6-16.6)
[2025-04-01 10:49] LABS: POTASSIUM 4.4 mmol/L (3.5-5.1)
[2025-04-01 10:51] LABS: BLOOD UREA NITROGEN 94.5 mg/dL (7-18); CALCIUM 8.9 mg/dL (8.5-10.1)
[2025-04-01 10:54] LABS: CREATININE 3.4 mg/dL (0.55-1.3)
[2025-04-01 10:56] LABS: BILIRUBIN,TOTAL 0.4 mg/dL (0.2-1)
[2025-04-01 10:57] LABS: TOT PROT 5.7 g/dl (6.4-8.2)
[2025-04-01 10:59] LABS: ALBUMIN 1.8 g/dl (3.4-5.0); BLOOD UREA NITROGEN 58.3 mg/dL (7-18); CALCIUM 5.6 mg/dL (8.5-10.1)
[2025-04-01 11:00] LABS: ALBUMIN 3.3 g/dl (3.4-5.0)
[2025-04-01 11:00] LABS: LACTIC ACID 8.9 mmol/L (0.4-2.0)
[2025-04-01 11:13] LABS: TOT PROT 3.1 g/dl (6.4-8.2)
[2025-04-01] MEDS: SODIUM CHLORIDE 1,000 ML IV STA ×2 (11:35→15:29)
[2025-04-01] MEDS: amLODIPine BESYLATE 10 MG TABLET (FP) PO SCH (11:36)
[2025-04-01] MEDS: FOLIC ACID 1 MG TABLET (FP) PO SCH (11:36)
[2025-04-01] MEDS: DULoxetine HCL 20 MG CAPSULE.DR PO SCH (11:36)
[2025-04-01] MEDS: FERROUS SO4 325 MG TABLET (FP) PO SCH (11:36)
[2025-04-01] MEDS: MULTIVITAMINS (DAILY MVI) TABLET (FP) PO SCH (11:36)
[2025-04-01] MEDS: POLYETHYLENE GLYCOL (HEALTHYLAX) 3350 17 GM PACKET PO SCH (11:36)
[2025-04-01] MEDS: VITAMINS A AND D TOPICAL OINTMENT TP SCH (11:37)
[2025-04-01] MEDS ORDERED: PIPERACILLIN/TAZOB 2.25 GM 2.25 GM in DEXTROSE 5%-WATER - 50 ML IVPB SCH (11:45)
[2025-04-01 13:22] LABS: LACTIC ACID 9.5 mmol/L (0.4-2.0)
[2025-04-01] MEDS ORDERED: RANOLAZINE E.R. 500 MG TABLET (FP) ONE ×2 (13:26→21:25)
[2025-04-01] MEDS: VANCOMYCIN 1 GM PREMIX (F) 1 GM/200 ML BAG IVPB ONE (14:12)
[2025-04-01] MEDS: PIPERACILLIN/TAZOB 2.25 GM 2.25 GM/50 ML BAG IVPB SCH (14:12)
[2025-04-01] MEDS: DEXMEDETOMIDINE PREMIX 400 MCG/100 ML BAG IVPB SCH (14:14)
[2025-04-01] MEDS: MUPIROCIN 2% TOPICAL OINTMENT FOR DECOLONIZATION NS SCH ×2 (14:16→21:17)
[2025-04-01] MEDS: VANCOMYCIN 1,000 MG in DEXTROSE 5%-WATER - 250 ML IVPB SCH (14:18)
[2025-04-01 14:32] LABS: EPI CELLS 9 /uL (0-25.1); HYALINE CASTS 2 /uL (0-3.1); URINE APPEARANCE TURBID; URINE BACTERIA >9,000 /uL (0-1359); URINE BILIRUBIN NEGATIVE (NEGATIVE); URINE COLOR YELLOW; URINE GLUCOSE (UA) NEGATIVE (NEGATIVE); URINE KETONE TRACE (NEGATIVE); URINE LEUK ESTERASE 3+ (NEGATIVE); URINE NITRITE NEGATIVE (NEGATIVE); URINE PROTEIN 2+ (NEGATIVE); URINE WBC 15835 /uL (0-25.8)
[2025-04-01] MEDS: CLOPIDOGREL BISULFATE 75 MG TABLET (FP) PO SCH (15:28)
[2025-04-01] MEDS: NOREPINEPHRINE 0.9 % NACL 8 MG/250 ML BAG IVPB SCH (15:30)
[2025-04-01] MEDS: VASopressin 40 UNITS/100 ML BAG IV SCH (15:32)
[2025-04-01] MEDS: SODIUM CHLORIDE 1,000 ML IV SCH (15:33)
[2025-04-01 15:36] LABS: URINE RBC 825 /uL (0-23.9); YEAST NONE SEEN (NEGATIVE)
[2025-04-01 15:36] LABS: VENOUS BASE EXCESS -7.6 mmol/L (-2-2); VENOUS O2 SATURATION 89.8 % (70-80); VENOUS PCO2 34.9 mmHg (38-52); VENOUS PH 7.322 (7.310-7.410)
[2025-04-01 15:39] LABS: HEMOGLOBIN 8.4 g/dL (13.7-17.5)
[2025-04-01 15:40] LABS: HEMATOCRIT 25.7 % (40.1-51.0); MCHC 32.7 g/dl (32.3-36.5); MEAN CELL VOLUME 92.1 fl (79.0-92.2); MEAN PLT VOLUME 10.5 fl (9.4-12.4); PLATELET COUNT 78 x10^3/uL (163-337); RDW 12.5 % (12.6-16.6)
[2025-04-01 15:58] LABS: POTASSIUM 3.7 mmol/L (3.5-5.1)
[2025-04-01 16:00] LABS: BLOOD UREA NITROGEN 94.6 mg/dL (7-18); MAGNESIUM 1.9 mg/dL (1.8-2.4)
[2025-04-01 16:03] LABS: CREATININE 3.1 mg/dL (0.55-1.3); PHOSPHOROUS 3.8 mg/dL (2.5-4.9)
[2025-04-01 16:05] LABS: BILIRUBIN,TOTAL 0.5 mg/dL (0.2-1)
[2025-04-01 16:09] LABS: CALCIUM 8.4 mg/dL (8.5-10.1); TOT PROT 5.2 g/dl (6.4-8.2)
[2025-04-01 16:13] LABS: LACTIC ACID 3.5 mmol/L (0.4-2.0)
[2025-04-01] MEDS: RANOLAZINE E.R. 1,000 MG TABLET (FP) PO SCH ×2 (16:15→21:26)
[2025-04-01 18:00] LABS: EPI CELLS >36 /uL (0-25.1); HYALINE CASTS 10 /uL (0-3.1); URINE APPEARANCE TURBID; URINE BACTERIA >9,000 /uL (0-1359); URINE BILIRUBIN NEGATIVE (NEGATIVE); URINE COLOR YELLOW; URINE GLUCOSE (UA) NEGATIVE (NEGATIVE); URINE KETONE TRACE (NEGATIVE); URINE LEUK ESTERASE 3+ (NEGATIVE); URINE NITRITE POSITIVE (NEGATIVE); URINE PROTEIN 2+ (NEGATIVE)
[2025-04-01 18:17] LABS: URINE RBC 806.3 /uL (0-23.9)
[2025-04-01] MEDS ORDERED: DEXTROSE 5%-0.45% SALINE 1,000 ML IV SCH (19:46)
[2025-04-01] MEDS: ALBUMIN HUMAN 5% 250 ML IV SOLUTION IV ONE ×2 (21:16→21:42)
[2025-04-01] MEDS: ATORVASTATIN CA 20 MG TABLET (FP) PO SCH (21:26)
[2025-04-01] MEDS: CHLORHEXIDINE GLUCONATE 4% CLEANSER FOR DECOLONIZATION TP SCH (21:26)
[2025-04-01] MEDS: MIRTAZAPINE 15 MG TABLET (FP) PO SCH (21:26)
[2025-04-01] MEDS: HYDROCORTISONE SOD SUCCINATE 100 MG/2 ML VIAL IVPB SCH (21:41)
[2025-04-01] MEDS: IPRATROPIUM BR 0.02% 0.5 MG/2.5 ML VIAL.NEB. NEB ONE (21:46)
[2025-04-01] MEDS: ALBUTEROL SO4 0.083% IH SOL 2.5 MG/3 ML VIAL.NEB. NEB ONE (21:46)
[2025-04-01 21:48] LABS: ARTERIAL BLD GAS O2 SATURATION 99.9 % (95-98); ARTERIAL BLOOD GAS BASE EXCESS -6.4 mmol/L (-2-2); ARTERIAL BLOOD GAS PO2 475.2 mmHg (80-100); ARTERIAL BLOOD GAS pH 7.373 (7.350-7.450)
[2025-04-01 21:49] LABS: VENT MODE V-A/C
[2025-04-01 21:50] LABS: VENT RATE 16
[2025-04-01] MEDS ORDERED: ATORVASTATIN CA 20 MG TABLET (FP) PO SCH (22:00)
[2025-04-01] MEDS ORDERED: MIRTAZAPINE 15 MG TABLET (FP) PO SCH (22:00)
[2025-04-01] MEDS ORDERED: CHLORHEXIDINE GLUCONATE 4% CLEANSER FOR DECOLONIZATION TP SCH (22:00)
[2025-04-02] MEDS: ALBUTEROL SO4 0.083% IH SOL 2.5 MG/3 ML VIAL.NEB. NEB SCH (00:09)
[2025-04-02 06:09] LABS: VENOUS BASE EXCESS -7.6 mmol/L (-2-2); VENOUS O2 SATURATION 62.7 % (70-80); VENOUS PH 7.298 (7.310-7.410)
[2025-04-02 06:11] LABS: ARTERIAL BLD GAS O2 SATURATION 99.1 % (95-98); ARTERIAL BLOOD GAS BASE EXCESS -9.8 mmol/L (-2-2); ARTERIAL BLOOD GAS PO2 173.4 mmHg (80-100); ARTERIAL BLOOD GAS pH 7.348 (7.350-7.450)
[2025-04-02 06:14] LABS: VENT MODE V-A/C; VENT RATE 16
[2025-04-02] MEDS: INSULIN ASPART SLIDING SCALE (NOVOLOG) 1 VIAL SQ SCH (06:14)
[2025-04-02 06:47] LABS: POTASSIUM 3.9 mmol/L (3.5-5.1)
[2025-04-02 06:51] LABS: CALCIUM 8.2 mg/dL (8.5-10.1)
[2025-04-02 06:52] LABS: BLOOD UREA NITROGEN 87.9 mg/dL (7-18); MAGNESIUM 1.7 mg/dL (1.8-2.4)
[2025-04-02 06:55] LABS: CREATININE 2.7 mg/dL (0.55-1.3); HEMATOCRIT 25.3 % (40.1-51.0); HEMOGLOBIN 8.2 g/dL (13.7-17.5); LACTIC ACID 2.1 mmol/L (0.4-2.0); MCHC 32.4 g/dl (32.3-36.5); MEAN CELL VOLUME 92.3 fl (79.0-92.2); MEAN PLT VOLUME 11.2 fl (9.4-12.4); PHOSPHOROUS 4.5 mg/dL (2.5-4.9); PLATELET COUNT 66 x10^3/uL (163-337); RDW 12.9 % (12.6-16.6)
[2025-04-02] MEDS ORDERED: RANOLAZINE E.R. 500 MG TABLET (FP) ONE ×2 (08:48→21:04)
[2025-04-02] MEDS: MAGNESIUM 1GM/D5W - 1 GM/100 ML IVPB IVPB ONE (08:50)
[2025-04-02] MEDS: LACTATED RINGERS SOLUTION 1,000 ML/1,000 ML INFUS.BAG IV STA (09:36)
[2025-04-02] MEDS: CLOPIDOGREL BISULFATE 75 MG TABLET (FP) PO SCH (09:36)
[2025-04-02] MEDS: POLYETHYLENE GLYCOL (HEALTHYLAX) 3350 17 GM PACKET PO SCH (09:37)
[2025-04-02] MEDS: DULoxetine HCL 20 MG CAPSULE.DR PO SCH (09:37)
[2025-04-02] MEDS: MULTIVITAMINS (DAILY MVI) TABLET (FP) PO SCH (09:37)
[2025-04-02] MEDS: FERROUS SO4 325 MG TABLET (FP) PO SCH (09:37)
[2025-04-02] MEDS: FLUDROCORTISONE ACETATE 0.1 MG TABLET (FP) PO SCH (09:37)
[2025-04-02] MEDS: PANTOPRAZOLE SODIUM 40 MG VIAL IVPUSH SCH (09:37)
[2025-04-02] MEDS: FOLIC ACID 1 MG TABLET (FP) PO SCH (09:37)
[2025-04-02] MEDS: IPRATROPIUM BR 0.02% 0.5 MG/2.5 ML VIAL.NEB. NEB SCH (09:39)
[2025-04-02] MEDS ORDERED: amLODIPine BESYLATE 10 MG TABLET (FP) PO SCH (10:00)
[2025-04-02] MEDS: LACTATED RINGERS SOLUTION 1,000 ML/1,000 ML INFUS.BAG IV SCH (13:00)
[2025-04-02] MEDS: ALBUTEROL SO4 2.5/IPRATROPIUM 0.5 INH SOL 3 ML VIAL.NEB. NEB SCH (13:03)
[2025-04-02] MEDS: VITAMINS A AND D TOPICAL OINTMENT TP SCH (14:45)
[2025-04-02] MEDS: VANCOMYCIN 1 GM PREMIX (F) 1 GM/200 ML BAG IVPB ONE (14:59)
[2025-04-02] MEDS ORDERED: ATORVASTATIN CA 80 MG TABLET (FP) PO SCH (22:00)
[2025-04-03 07:00] LABS: INR 1.64 (0.83-1.09); PROTHROMBIN TIME (PATIENT) 17.9 SEC (9.7-13.0)
[2025-04-03 07:15] LABS: HEMATOCRIT 25.2 % (40.1-51.0); HEMOGLOBIN 8.2 g/dL (13.7-17.5); MCHC 32.5 g/dl (32.3-36.5); MEAN PLT VOLUME 12.9 fl (9.4-12.4); PLATELET COUNT 50 x10^3/uL (163-337); POTASSIUM 3.8 mmol/L (3.5-5.1); RDW 13.1 % (12.6-16.6)
[2025-04-03 07:30] LABS: CALCIUM 8.3 mg/dL (8.5-10.1)
[2025-04-03 07:31] LABS: ALBUMIN 2.8 g/dl (3.4-5.0); BLOOD UREA NITROGEN 75.3 mg/dL (7-18); MAGNESIUM 2.1 mg/dL (1.8-2.4)
[2025-04-03 07:34] LABS: CREATININE 2.3 mg/dL (0.55-1.3); PHOSPHOROUS 4.4 mg/dL (2.5-4.9)
[2025-04-03 07:35] LABS: BILIRUBIN,TOTAL 0.8 mg/dL (0.2-1); TOT PROT 5.2 g/dl (6.4-8.2)
[2025-04-03] MEDS: LACTATED RINGERS SOLUTION 1,000 ML/1,000 ML INFUS.BAG IV SCH (08:15)
[2025-04-03] MEDS ORDERED: RANOLAZINE E.R. 500 MG TABLET (FP) ONE (09:29)
[2025-04-03] MEDS: FLUDROCORTISONE ACETATE 0.1 MG TABLET (FP) PO SCH (09:49)
[2025-04-03] MEDS ORDERED: VANCOMYCIN/WATER FOR INJ (PEG) 750 MG/150 ML BAG IVPB SCH (13:00)
[2025-04-03] MEDS: PIPERACILLIN/TAZOB 2.25 GM 2.25 GM/50 ML BAG IVPB SCH (17:48)
[2025-04-03 20:20] LABS: ARTERIAL BLD GAS O2 SATURATION 98.9 % (95-98); ARTERIAL BLOOD GAS PO2 146.1 mmHg (80-100); ARTERIAL BLOOD GAS pH 7.403 (7.350-7.450)
[2025-04-03] MEDS ORDERED: FUROSEMIDE 40 MG/4 ML INJECTABLE VIAL IVPUSH ONE (20:27)
[2025-04-03] MEDS: FUROSEMIDE 40 MG/4 ML INJECTABLE VIAL IVPUSH ONE (20:40)
[2025-04-03] MEDS: ALBUMIN HUMAN 25% 12.5 GM/50 ML VIAL IV SCH (21:15)
[2025-04-04 06:17] LABS: ARTERIAL BLD GAS O2 SATURATION 98.6 % (95-98); ARTERIAL BLOOD GAS BASE EXCESS -8.2 mmol/L (-2-2); ARTERIAL BLOOD GAS PO2 129.2 mmHg (80-100); ARTERIAL BLOOD GAS pH 7.389 (7.350-7.450)
[2025-04-04 06:45] LABS: PLATELET COUNT 34 x10^3/uL (163-337); RDW 13.2 % (12.6-16.6)
[2025-04-04 06:48] LABS: HEMATOCRIT 21.8 % (40.1-51.0); HEMOGLOBIN 7.3 g/dL (13.7-17.5); MCHC 33.5 g/dl (32.3-36.5); MEAN CELL VOLUME 89.7 fl (79.0-92.2); MEAN PLT VOLUME 12.7 fl (9.4-12.4)
[2025-04-04 07:22] LABS: POTASSIUM 3.4 mmol/L (3.5-5.1)
[2025-04-04 07:27] LABS: BLOOD UREA NITROGEN 85.8 mg/dL (7-18); CALCIUM 8.7 mg/dL (8.5-10.1)
[2025-04-04 07:28] LABS: MAGNESIUM 2.1 mg/dL (1.8-2.4)
[2025-04-04 07:31] LABS: CREATININE 2.4 mg/dL (0.55-1.3); PHOSPHOROUS 4.9 mg/dL (2.5-4.9)
[2025-04-04] MEDS ORDERED: RANOLAZINE E.R. 500 MG TABLET (FP) ONE (08:53)
[2025-04-04] MEDS: HYDROCORTISONE SOD SUCCINATE 100 MG/2 ML VIAL IVPB SCH (10:25)
[2025-04-04] MEDS: FUROSEMIDE 40 MG/4 ML INJECTABLE VIAL IVPUSH ONE (10:29)
[2025-04-04 11:29] LABS: HEMOGLOBIN 7.2 g/dL (13.7-17.5)
[2025-04-04 11:30] LABS: HEMATOCRIT 21.6 % (40.1-51.0); MCHC 33.3 g/dl (32.3-36.5); MEAN CELL VOLUME 90.8 fl (79.0-92.2); PLATELET COUNT 33 x10^3/uL (163-337); RDW 13.4 % (12.6-16.6)
[2025-04-04] MEDS: KCL 20 MEQ PREMIX BAG 20 MEQ/100 ML INFUS.BAG IVPB SCH (11:35)
[2025-04-04] MEDS: MEROPENEM 1 GM in DEXTROSE 5%-WATER 100 ML IVPB SCH ×2 (16:15)
[2025-04-05] MEDS: MEROPENEM 1 GM in DEXTROSE 5%-WATER 100 ML IVPB SCH (02:59)
[2025-04-05 06:35] LABS: HEMOGLOBIN 7.7 g/dL (13.7-17.5)
[2025-04-05 06:37] LABS: ABSOLUTE IMMATURE GRANULOCYTES 0.18 x10^3/uL (0.0-0.031); BASOPHILS # 0.03 x10^3/uL (0.01-0.08); HEMATOCRIT 23.2 % (40.1-51.0); MCHC 33.2 g/dl (32.3-36.5); MEAN CELL VOLUME 89.6 fl (79.0-92.2); MEAN PLT VOLUME 12.9 fl (9.4-12.4); MONOCYTE # 0.41 x10^3/uL (0.30-0.82); MONOCYTE % 3.1 % (5.3-12.2); PLATELET COUNT 16 x10^3/uL (163-337); RDW 13.1 % (12.6-16.6)
[2025-04-05 06:56] LABS: INR 1.32 (0.83-1.09); POTASSIUM 3.8 mmol/L (3.5-5.1); PROTHROMBIN TIME (PATIENT) 14.4 SEC (9.7-13.0)
[2025-04-05 06:59] LABS: ACTIVATED PTT 26.1 SECONDS (25.2-36.5); CALCIUM 8.7 mg/dL (8.5-10.1)
[2025-04-05 07:00] LABS: ALBUMIN 2.9 g/dl (3.4-5.0); BLOOD UREA NITROGEN 103.5 mg/dL (7-18)
[2025-04-05 07:03] LABS: CREATININE 2.6 mg/dL (0.55-1.3); PHOSPHOROUS 4.6 mg/dL (2.5-4.9)
[2025-04-05 07:04] LABS: TOT PROT 5.2 g/dl (6.4-8.2)
[2025-04-05] MEDS: FUROSEMIDE 40 MG/4 ML INJECTABLE VIAL IVPUSH ONE (12:01)
[2025-04-06] MEDS: ACETAMINOPHEN 1000 MG/100 ML BAG IVPB ONE (05:33)
[2025-04-06] MEDS: DEXTROSE 5%-LACTATED RINGERS 1,000 ML IV SCH (06:32)
[2025-04-06 07:39] LABS: HEMATOCRIT 20.4 % (40.1-51.0); HEMOGLOBIN 6.6 g/dL (13.7-17.5); MCHC 32.4 g/dl (32.3-36.5); MEAN CELL VOLUME 91.1 fl (79.0-92.2); MEAN PLT VOLUME 11.9 fl (9.4-12.4); PLATELET COUNT 47 x10^3/uL (163-337); RDW 13.3 % (12.6-16.6)
[2025-04-06 07:40] LABS: HEMOGLOBIN 6.7 g/dL (13.7-17.5); RDW 13.2 % (12.6-16.6)
[2025-04-06 07:42] LABS: BASOPHILS # 0.02 x10^3/uL (0.01-0.08); HEMATOCRIT 20.7 % (40.1-51.0); MCHC 32.4 g/dl (32.3-36.5); MEAN CELL VOLUME 90.8 fl (79.0-92.2); MEAN PLT VOLUME 11.9 fl (9.4-12.4); MONOCYTE # 0.29 x10^3/uL (0.30-0.82); MONOCYTE % 3.2 % (5.3-12.2); PLATELET COUNT 43 x10^3/uL (163-337)
[2025-04-06 08:01] LABS: CHLORIDE 117 mmol/L (98-107); POTASSIUM 3.6 mmol/L (3.5-5.1); SODIUM 150 mmol/L (136-145)
[2025-04-06 08:14] LABS: ALBUMIN 2.7 g/dl (3.4-5.0); ANION GAP 14 mmol/L (4-13); CALCIUM 8.8 mg/dL (8.5-10.1); CO2 19 mmol/L (21-32); GLUCOSE,RANDOM 352 mg/dL (74-106); MAGNESIUM 2.1 mg/dL (1.8-2.4)
[2025-04-06 08:17] LABS: CREATININE 2.5 mg/dL (0.55-1.3); INR 1.47 (0.83-1.09); PHOSPHOROUS 5.5 mg/dL (2.5-4.9); PROTHROMBIN TIME (PATIENT) 16.2 SEC (9.7-13.0); SGOT/AST 401 U/L (15-37); SGPT/ALT 382 U/L (13-61)
[2025-04-06 08:18] LABS: ACTIVATED PTT 25.2 SECONDS (25.2-36.5)
[2025-04-06 08:20] LABS: ALK PHOS 155 U/L (45-117)
[2025-04-06 08:22] LABS: BLOOD UREA NITROGEN 123.8 mg/dL (7-18)
[2025-04-06] MEDS ORDERED: SODIUM CHLORIDE 0.45% 1,000 ML IV SCH (09:45)
[2025-04-06] MEDS: SODIUM CHLORIDE 0.45% 1,000 ML IV SCH (09:56)
[2025-04-06] MEDS: PANTOPRAZOLE SODIUM 40 MG VIAL IVPUSH SCH (09:57)
[2025-04-06] MEDS ORDERED: MEROPENEM 1 GM in DEXTROSE 5%-WATER 100 ML IVPB SCH (10:00)
[2025-04-06] MEDS ORDERED: INSULIN ASPART SLIDING SCALE (NOVOLOG) 1 VIAL SQ SCH (10:54)
[2025-04-06] MEDS: ALBUTEROL SO4 2.5/IPRATROPIUM 0.5 INH SOL 3 ML VIAL.NEB. NEB PRN (12:04)
[2025-04-06] MEDS: INSULIN ASPART SLIDING SCALE (NOVOLOG) 1 VIAL SQ SCH (12:24)
[2025-04-06 12:56] LABS: GAMMA GLUTAMYL TRANSPEPTIDASE 93 U/L (5-85)
[2025-04-06 16:00] VITALS: BMI 21.1
[2025-04-06 19:14] LABS: HEMATOCRIT 24.6 % (40.1-51.0); HEMOGLOBIN 8.3 g/dL (13.7-17.5); MCHC 33.7 g/dl (32.3-36.5); MEAN CELL VOLUME 89.8 fl (79.0-92.2); MEAN PLT VOLUME 12.6 fl (9.4-12.4); PLATELET COUNT 34 x10^3/uL (163-337); RDW 13.2 % (12.6-16.6)
[2025-04-06 20:06] LABS: CK-MM 100 % (97-100)
[2025-04-06 20:07] LABS: CK-MM 100 % (97-100)
[2025-04-07 06:52] LABS: HEMOGLOBIN 8.5 g/dL (13.7-17.5); PLATELET COUNT 37 x10^3/uL (163-337)
[2025-04-07 06:54] LABS: HEMATOCRIT 24.9 % (40.1-51.0); MCHC 34.1 g/dl (32.3-36.5); MEAN CELL VOLUME 88.6 fl (79.0-92.2); MEAN PLT VOLUME 12.1 fl (9.4-12.4); RDW 13.4 % (12.6-16.6)
[2025-04-07 06:55] LABS: CHLORIDE 120 mmol/L (98-107); SODIUM 152 mmol/L (136-145)
[2025-04-07 06:57] LABS: ALBUMIN 2.4 g/dl (3.4-5.0); CALCIUM 8.4 mg/dL (8.5-10.1); CO2 21 mmol/L (21-32)
[2025-04-07 06:58] LABS: GLUCOSE,RANDOM 251 mg/dL (74-106)
[2025-04-07 07:00] LABS: ANION GAP 11 mmol/L (4-13); BLOOD UREA NITROGEN 112.3 mg/dL (7-18); CREATININE 2.2 mg/dL (0.55-1.3); PHOSPHOROUS 4.3 mg/dL (2.5-4.9); POTASSIUM 2.9 mmol/L (3.5-5.1); SGOT/AST 220 U/L (15-37); SGPT/ALT 309 U/L (13-61)
[2025-04-07 07:02] LABS: BILIRUBIN,TOTAL 0.9 mg/dL (0.2-1); TOT PROT 4.6 g/dl (6.4-8.2)
[2025-04-07 07:03] LABS: ALK PHOS 146 U/L (45-117)
[2025-04-07] MEDS ORDERED: SODIUM CHLORIDE 0.45% 1,000 ML IV SCH ×2 (08:00→10:00)
[2025-04-07] MEDS: KCL 10 MEQ IVPB 10 MEQ/100 ML INFUS.BAG IVPB SCH (08:08)
[2025-04-07] MEDS ORDERED: SODIUM CHLORIDE 1,000 ML IV STA (10:19)
[2025-04-07] MEDS: MULTIVIT-MINERALS ORAL LIQUID NGT SCH (11:32)
[2025-04-07] MEDS: SODIUM CHLORIDE 0.45% 1,000 ML IV SCH ×2 (11:32)
[2025-04-07 11:57] LABS: HEPATITIS B SURF AG NON-MATERN NON-REACTIVE (NONREACTIVE)
[2025-04-07 12:26] LABS: HCV DIAGNOSTIC IN-HOUSE W/RFLX NON-REACTIVE (NONREACTIVE)
[2025-04-08 06:28] LABS: CHLORIDE 119 mmol/L (98-107); SODIUM 148 mmol/L (136-145)
[2025-04-08 06:34] LABS: CALCIUM 8.2 mg/dL (8.5-10.1)
[2025-04-08 06:35] LABS: ALBUMIN 2.1 g/dl (3.4-5.0); BLOOD UREA NITROGEN 94.4 mg/dL (7-18); CO2 21 mmol/L (21-32); GLUCOSE,RANDOM 236 mg/dL (74-106); MAGNESIUM 1.8 mg/dL (1.8-2.4)
[2025-04-08 06:36] LABS: CREATININE 1.6 mg/dL (0.55-1.3); SGOT/AST 246 U/L (15-37); SGPT/ALT 321 U/L (13-61)
[2025-04-08 06:38] LABS: ANION GAP 8 mmol/L (4-13); BILIRUBIN,TOTAL 1.1 mg/dL (0.2-1); POTASSIUM 2.9 mmol/L (3.5-5.1)
[2025-04-08 06:39] LABS: TOT PROT 4.3 g/dl (6.4-8.2)
[2025-04-08 06:40] LABS: ALK PHOS 145 U/L (45-117)
[2025-04-08 07:16] LABS: PLATELET COUNT 39 x10^3/uL (163-337)
[2025-04-08 07:17] LABS: MCHC 33.3 g/dl (32.3-36.5); MEAN CELL VOLUME 91.2 fl (79.0-92.2); MEAN PLT VOLUME 12.6 fl (9.4-12.4); RDW 13.9 % (12.6-16.6)
[2025-04-08] MEDS: KCL 20 MEQ PREMIX BAG 20 MEQ/100 ML INFUS.BAG IVPB SCH (08:31)
[2025-04-08] MEDS: POTASSIUM CHLORIDE ORAL LIQUID 20 MEQ/15 ML PO ONE (08:53)
[2025-04-08] MEDS: POLYETHYLENE GLYCOL (HEALTHYLAX) 3350 17 GM PACKET NGT SCH (08:59)
[2025-04-08] MEDS: FOLIC ACID 1 MG TABLET (FP) NGT SCH (08:59)
[2025-04-08] MEDS: SODIUM CHLORIDE 0.45% 1,000 ML IV SCH ×2 (09:08→19:13)
[2025-04-08] MEDS: MIDODRINE HCL 5 MG TABLET PO SCH ×2 (15:26→18:10)
[2025-04-08 15:47] LABS: POTASSIUM 4.7 mmol/L (3.5-5.1)
[2025-04-08 15:50] LABS: CALCIUM 8.5 mg/dL (8.5-10.1)
[2025-04-08 15:51] LABS: BLOOD UREA NITROGEN 92.5 mg/dL (7-18)
[2025-04-08 15:54] LABS: CREATININE 1.5 mg/dL (0.55-1.3)
[2025-04-08 19:07] LABS: CK-MM 100 % (97-100)
[2025-04-09 07:02] LABS: RDW 14.1 % (12.6-16.6)
[2025-04-09 07:04] LABS: HEMATOCRIT 33.8 % (40.1-51.0); MCHC 32.5 g/dl (32.3-36.5); MEAN CELL VOLUME 91.4 fl (79.0-92.2); PLATELET COUNT 63 x10^3/uL (163-337)
[2025-04-09 07:13] LABS: INR 1.24 (0.83-1.09); PROTHROMBIN TIME (PATIENT) 13.6 SEC (9.7-13.0)
[2025-04-09 07:22] LABS: POTASSIUM 4.6 mmol/L (3.5-5.1)
[2025-04-09 07:34] LABS: ALBUMIN 2.4 g/dl (3.4-5.0); CALCIUM 8.7 mg/dL (8.5-10.1)
[2025-04-09 07:35] LABS: MAGNESIUM 2.1 mg/dL (1.8-2.4)
[2025-04-09 07:39] LABS: CREATININE 1.6 mg/dL (0.55-1.3); PHOSPHOROUS 3.5 mg/dL (2.5-4.9); TOT PROT 4.9 g/dl (6.4-8.2)
[2025-04-09] MEDS: ESCITALOPRAM OXALATE 10 MG TABLET PO SCH (10:07)
[2025-04-09] MEDS: MIDAZOLAM HCL 5 MG/1 ML Single Dose Vial IVPUSH ONE ×2 (16:35→17:35)
[2025-04-09] MEDS: ROCURONIUM BROMIDE 50 MG/5 ML VIAL IVPUSH ONE ×2 (16:35→17:35)
[2025-04-09] MEDS: PROPOFOL 200 MG/20 ML VIAL IVPUSH ONE (16:44)
[2025-04-10 07:07] LABS: HEMOGLOBIN 9.7 g/dL (13.7-17.5)
[2025-04-10 07:09] LABS: HEMATOCRIT 29.3 % (40.1-51.0); MCHC 33.1 g/dl (32.3-36.5); MEAN CELL VOLUME 91.6 fl (79.0-92.2); MEAN PLT VOLUME 12.3 fl (9.4-12.4); PLATELET COUNT 87 x10^3/uL (163-337); RDW 13.9 % (12.6-16.6)
[2025-04-10 07:18] LABS: CALCIUM 8.6 mg/dL (8.5-10.1)
[2025-04-10 07:19] LABS: ALBUMIN 2.5 g/dl (3.4-5.0); BLOOD UREA NITROGEN 83.7 mg/dL (7-18)
[2025-04-10 07:20] LABS: MAGNESIUM 2.1 mg/dL (1.8-2.4)
[2025-04-10 07:23] LABS: CREATININE 1.5 mg/dL (0.55-1.3); PHOSPHOROUS 3.3 mg/dL (2.5-4.9)
[2025-04-10 07:24] LABS: BILIRUBIN,TOTAL 0.7 mg/dL (0.2-1)
[2025-04-10 07:41] LABS: TOT PROT 5.1 g/dl (6.4-8.2)
[2025-04-10] MEDS: SODIUM CHLORIDE 0.45% 1,000 ML IV SCH ×2 (09:05→20:10)
[2025-04-10] MEDS ORDERED: HEPARIN NA (PORCINE) 5,000 UNITS/ML 1ML VIAL IVPUSH PRN ×2 (18:31)
[2025-04-10] MEDS: SODIUM CHLORIDE 0.45% 500 ML IV SCH (19:38)
[2025-04-10] MEDS: HEPARIN NA (PORCINE) 5,000 UNITS/ML 1ML VIAL IVPUSH ONE (19:58)
[2025-04-10] MEDS: HEPARIN INFUSION - 25,000 UNITS/500 ML INFUS.BAG IVPB SCH (19:58)
[2025-04-11 02:09] LABS: HEMOGLOBIN 8.9 g/dL (13.7-17.5)
[2025-04-11 02:11] LABS: HEMATOCRIT 27.1 % (40.1-51.0); MCHC 32.8 g/dl (32.3-36.5); MEAN CELL VOLUME 92.8 fl (79.0-92.2); MEAN PLT VOLUME 11.9 fl (9.4-12.4); PLATELET COUNT 81 x10^3/uL (163-337); RDW 14.1 % (12.6-16.6)
[2025-04-11 02:28] LABS: INR 1.22 (0.83-1.09)
[2025-04-11 02:48] LABS: ACTIVATED PTT > 200.0 SECONDS (25.2-36.5)
[2025-04-11 06:55] LABS: HEMATOCRIT 27.4 % (40.1-51.0); HEMOGLOBIN 8.8 g/dL (13.7-17.5); MCHC 32.1 g/dl (32.3-36.5); MEAN CELL VOLUME 92.9 fl (79.0-92.2); PLATELET COUNT 79 x10^3/uL (163-337); RDW 14.1 % (12.6-16.6)
[2025-04-11] MEDS: HYDROmorphone HCL CARPU-JECT 2 MG/1 ML DISP.SYRIN IVPUSH PRN (07:07)
[2025-04-11 07:43] LABS: ALBUMIN 2.2 g/dl (3.4-5.0); BILIRUBIN,TOTAL 0.8 mg/dL (0.2-1); BLOOD UREA NITROGEN 64.4 mg/dL (7-18); CALCIUM 8.1 mg/dL (8.5-10.1); CREATININE 1.1 mg/dL (0.55-1.3); MAGNESIUM 1.9 mg/dL (1.8-2.4); PHOSPHOROUS 2.8 mg/dL (2.5-4.9); POTASSIUM 3.6 mmol/L (3.5-5.1); TOT PROT 4.5 g/dl (6.4-8.2)
[2025-04-11 10:29] LABS: INR 1.19 (0.83-1.09)
[2025-04-11] MEDS: POTASSIUM CHLORIDE ORAL LIQUID 20 MEQ/15 ML NGT ONE (10:32)
[2025-04-11 10:43] LABS: ACTIVATED PTT 128.2 SECONDS (25.2-36.5)
[2025-04-11] MEDS ORDERED: HEPARIN NA (PORCINE) 5,000 UNITS/ML 1ML VIAL IVPUSH PRN ×3 (20:51)
[2025-04-11] MEDS ORDERED: HYDROmorphone HCL CARPU-JECT 2 MG/1 ML DISP.SYRIN IVPUSH PRN (20:51)
[2025-04-11] MEDS ORDERED: ALBUTEROL SO4 2.5/IPRATROPIUM 0.5 INH SOL 3 ML VIAL.NEB. NEB PRN (20:51)
[2025-04-11] MEDS: HEPARIN NA (PORCINE) 5,000 UNITS/ML 1ML VIAL IVPUSH PRN (21:31)
[2025-04-11] MEDS: HEPARIN INFUSION - 25,000 UNITS/500 ML INFUS.BAG IVPB SCH (21:37)
[2025-04-11] MEDS: PANTOPRAZOLE SODIUM 40 MG VIAL IVPUSH SCH (21:40)
[2025-04-11] MEDS: SODIUM CHLORIDE 0.45% 1,000 ML IV SCH (21:41)
[2025-04-11] MEDS: HEPARIN NA (PORCINE) 5,000 UNITS/ML 1ML VIAL IVPUSH ONE (22:30)
[2025-04-12] MEDS: MEROPENEM 1 GM in DEXTROSE 5%-WATER 100 ML IVPB SCH (04:53)
[2025-04-12] MEDS: INSULIN ASPART SLIDING SCALE (NOVOLOG) 1 VIAL SQ SCH (06:54)
[2025-04-12 09:01] LABS: ABSOLUTE IMMATURE GRANULOCYTES 0.17 x10^3/uL (0.0-0.031); BASOPHILS # 0.02 x10^3/uL (0.01-0.08); EOSINOPHIL % 0.1 % (0.8-7.0); EOSINOPHILS # 0.01 x10^3/uL (0.04-0.54); HEMATOCRIT 28.4 % (40.1-51.0); HEMOGLOBIN 9.2 g/dL (13.7-17.5); MCHC 32.4 g/dl (32.3-36.5); MEAN CELL VOLUME 92.5 fl (79.0-92.2); MEAN PLT VOLUME 12.8 fl (9.4-12.4); MONOCYTE % 4.9 % (5.3-12.2); PLATELET COUNT 91 x10^3/uL (163-337); RDW 15.1 % (12.6-16.6)
[2025-04-12 09:26] LABS: POTASSIUM 4.5 mmol/L (3.5-5.1)
[2025-04-12 09:29] LABS: ALBUMIN 2.2 g/dl (3.4-5.0); CALCIUM 8.1 mg/dL (8.5-10.1)
[2025-04-12 09:31] LABS: BLOOD UREA NITROGEN 54.6 mg/dL (7-18)
[2025-04-12 09:33] LABS: CREATININE 1.1 mg/dL (0.55-1.3); PHOSPHOROUS 2.8 mg/dL (2.5-4.9)
[2025-04-12 09:36] LABS: BILIRUBIN,TOTAL 0.8 mg/dL (0.2-1); TOT PROT 4.5 g/dl (6.4-8.2)
[2025-04-12] MEDS: POLYETHYLENE GLYCOL (HEALTHYLAX) 3350 17 GM PACKET NGT SCH (09:49)
[2025-04-12] MEDS: FOLIC ACID 1 MG TABLET (FP) NGT SCH (09:49)
[2025-04-12] MEDS: MULTIVIT-MINERALS ORAL LIQUID NGT SCH (09:49)
[2025-04-12] MEDS: ESCITALOPRAM OXALATE 10 MG TABLET PO SCH (09:49)
[2025-04-12] MEDS: MIDODRINE HCL 5 MG TABLET PO SCH ×2 (09:50→13:49)
[2025-04-12] MEDS: VITAMINS A AND D TOPICAL OINTMENT TP SCH (11:47)
[2025-04-13 10:33] LABS: BASOPHILS # 0.02 x10^3/uL (0.01-0.08); RDW 15.2 % (12.6-16.6)
[2025-04-13 10:34] LABS: EOSINOPHIL % 0.1 % (0.8-7.0); EOSINOPHILS # 0.01 x10^3/uL (0.04-0.54); HEMATOCRIT 28.7 % (40.1-51.0); HEMOGLOBIN 9.3 g/dL (13.7-17.5); MCHC 32.4 g/dl (32.3-36.5); MEAN CELL VOLUME 92.3 fl (79.0-92.2); MEAN PLT VOLUME 11.9 fl (9.4-12.4); MONOCYTE % 5.7 % (5.3-12.2); PLATELET COUNT 88 x10^3/uL (163-337)
[2025-04-13 10:42] LABS: INR 1.05 (0.83-1.09); PROTHROMBIN TIME (PATIENT) 11.4 SEC (9.7-13.0)
[2025-04-13 10:54] LABS: POTASSIUM 4.6 mmol/L (3.5-5.1)
[2025-04-13 10:56] LABS: CALCIUM 8.2 mg/dL (8.5-10.1)
[2025-04-13 10:57] LABS: ALBUMIN 2.3 g/dl (3.4-5.0); BLOOD UREA NITROGEN 48.6 mg/dL (7-18)
[2025-04-13 11:00] LABS: CREATININE 1.1 mg/dL (0.55-1.3); PHOSPHOROUS 2.6 mg/dL (2.5-4.9)
[2025-04-13 11:02] LABS: BILIRUBIN,TOTAL 0.6 mg/dL (0.2-1); TOT PROT 4.8 g/dl (6.4-8.2)
[2025-04-14] MEDS: BANATROL PLUS POWDER PACKET PO SCH (21:59)
[2025-04-15] MEDS ORDERED: FENTANYL CITRATE/PF 50 MCG/ML VIAL ONE (15:53)
[2025-04-15] MEDS: FENTANYL CITRATE/PF 50 MCG/ML VIAL IVPUSH ONE (15:57)
[2025-04-16 08:53] LABS: ABSOLUTE IMMATURE GRANULOCYTES 0.07 x10^3/uL (0.0-0.031); BASOPHILS # 0.02 x10^3/uL (0.01-0.08); MEAN CELL VOLUME 94.3 fl (79.0-92.2); MEAN PLT VOLUME 12.3 fl (9.4-12.4); MONOCYTE # 0.65 x10^3/uL (0.30-0.82); MONOCYTE % 5.5 % (5.3-12.2); PLATELET COUNT 70 x10^3/uL (163-337); RDW 15.9 % (12.6-16.6)
[2025-04-16 09:47] LABS: POTASSIUM 4.7 mmol/L (3.5-5.1)
[2025-04-16 09:48] LABS: ALBUMIN 2.1 g/dl (3.4-5.0); BLOOD UREA NITROGEN 43.1 mg/dL (7-18); CALCIUM 8.6 mg/dL (8.5-10.1)
[2025-04-16 09:51] LABS: CREATININE 0.8 mg/dL (0.55-1.3)
[2025-04-16 09:52] LABS: BILIRUBIN,TOTAL 0.7 mg/dL (0.2-1)
[2025-04-16 09:53] LABS: TOT PROT 4.5 g/dl (6.4-8.2)
[2025-04-17 14:21] VITALS: BP 140/70; PULSE 78; TEMP 99.3
[2025-04-17 15:20] VITALS: RESP 18
== END 2025-04-17 16:59 | DRG 4 ==
LOC: JER 20:35 → JERBED 04-01 02:05 → J5S 04-01 04:12 → JICU 04-01 08:22 → J5S 04-11 19:08
PROVIDERS: ADMIT Hospitalist
PROC: 5A1955Z Respiratory Ventilation, Greater than 96 Consecutive Hours (ICD-10-PCS; 2025-04-01)
PROC: 0BH17EZ Insertion of Endotracheal Airway into Trachea, Via Natural or Artificial Opening (ICD-10-PCS; 2025-04-01)
PROC: 4A133B1 Monitoring of Arterial Pressure, Peripheral, Percutaneous Approach (ICD-10-PCS; 2025-04-01)
PROC: 4A133J1 Monitoring of Arterial Pulse, Peripheral, Percutaneous Approach (ICD-10-PCS; 2025-04-01)
PROC: 05HM33Z Insertion of Infusion Device into Right Internal Jugular Vein, Percutaneous Approach (ICD-10-PCS; 2025-04-01)
PROC: B543ZZA Ultrasonography of Right Jugular Veins, Guidance (ICD-10-PCS; 2025-04-01)
PROC: 30233R1 Transfusion of Nonautologous Platelets into Peripheral Vein, Percutaneous Approach (ICD-10-PCS; 2025-04-05)
PROC: 30233N1 Transfusion of Nonautologous Red Blood Cells into Peripheral Vein, Percutaneous Approach (ICD-10-PCS; 2025-04-06)
PROC: 0B110F4 Bypass Trachea to Cutaneous with Tracheostomy Device, Open Approach (ICD-10-PCS; principal; 2025-04-09)
PROC: 0BJ08ZZ Inspection of Tracheobronchial Tree, Via Natural or Artificial Opening Endoscopic (ICD-10-PCS; 2025-04-09)
PROC: 0D20XUZ Change Feeding Device in Upper Intestinal Tract, External Approach (ICD-10-PCS; 2025-04-15)
DX: A41.50 Gram-negative sepsis, unspecified (principal); J96.01 Acute respiratory failure with hypoxia; R65.21 Severe sepsis with septic shock; R53.2 Functional quadriplegia; E43 Unspecified severe protein-calorie malnutrition; N17.9 Acute kidney failure, unspecified; R64 Cachexia; I24.89 Other forms of acute ischemic heart disease; K92.2 Gastrointestinal hemorrhage, unspecified; E87.20 Acidosis, unspecified; N39.0 Urinary tract infection, site not specified; E87.0 Hyperosmolality and hypernatremia; R62.7 Adult failure to thrive; E11.40 Type 2 diabetes mellitus with diabetic neuropathy, unspecified; I10 Essential (primary) hypertension; F32.9 Major depressive disorder, single episode, unspecified; F03.90 Unspecified dementia, unspecified severity, without behavioral disturbance, psychotic disturbance, mood disturbance, and anxiety; I69.391 Dysphagia following cerebral infarction; D64.9 Anemia, unspecified; E78.5 Hyperlipidemia, unspecified; D69.6 Thrombocytopenia, unspecified; R79.89 Other specified abnormal findings of blood chemistry; E11.65 Type 2 diabetes mellitus with hyperglycemia; I70.203 Unspecified atherosclerosis of native arteries of extremities, bilateral legs; L89.150 Pressure ulcer of sacral region, unstageable; B96.20 Unspecified Escherichia coli [E. coli] as the cause of diseases classified elsewhere; Z68.22 Body mass index [BMI] 22.0-22.9, adult; I25.10 Atherosclerotic heart disease of native coronary artery without angina pectoris
CPT/HCPCS: 31500; 36415; 36430; 36600; 49440; 71045-TC-FY; 76705-TC; 76775-TC; 80048; 80053; 81003; 82272; 82550; 82552; 82553; 82570; 82803; 82962; 82977; 83605; 83735; 83880; 83930; 83935; 84100; 84300; 84484; 84540; 85025; 85027; 85384; 85610; 85730; 86022; 86704; 86708; 86803; 86850; 86900; 86901; 86922; 87040; 87086; 87340; 87481; 87517; 87635; 93005; 93010; 93306-TC; 93925-TC; 94002; 94640; 99285-25; G0480; J1644; J3490; P9037; P9047; P9058